=== PATIENT | female | born 1935 | race Caucasian/White ===

== ENCOUNTER 2022-06-12 10:50 | Emergency (ER) | payer MEDICARE, SELFPAY ==
[2022-06-12] VITALS (23 sets, daily range): BP systolic 166–204; BP diastolic 66–88; PULSE 68–81; RESP 16–24; TEMP 36.2; O2SAT 92–97; BMI 27.3
--- NOTE | 2022-06-12 12:04 | CRLHL7_ITS ---
For Patients: As a result of the Century Cures Act, medical imaging exams and procedure reports are released immediately into your electronic medical record. You may view this report before your referring provider. If you have questions, please contact your health care provider. INDICATION: Altered mental status COMPARISON: March 05, 2022 TECHNIQUE: Single-view study FINDINGS: TUBES AND LINES: None. HEART AND MEDIASTINUM: Mildly enlarged heart similar in appearance to the prior study. LUNGS AND PLEURAL SPACES: Abnormal interstitial, vascular and alveolar findings with prominent septal lines.This likely represents interstitial and alveolar edema/congestive heart failure. A diffuse inflammatory process is possible but less likely. OSSEOUS STRUCTURES: Age-appropriate appearance. No acute focal finding. IMPRESSION: Pattern most consistent with interstitial and alveolar edema/congestive heart failure. Diffuse inflammatory process is possible but less likely. Dictated by Andrew Crum MD @ 06/12/2022 12:57:12 PM (Electronically Signed)
--- NOTE | 2022-06-12 12:04 | CRLHL7_ITS ---
For Patients: As a result of the Century Cures Act, medical imaging exams and procedure reports are released immediately into your electronic medical record. You may view this report before your referring provider. If you have questions, please contact your health care provider. INDICATION: Altered mental status. TECHNIQUE: CT head without contrast. COMPARISON: 06/09/2021. FINDINGS: CSF spaces: Within normal limits for age. Brain parenchyma and extra-axial spaces: The ramírez-white differentiation is normal. No sign of mass, hemorrhage, or midline shift. No extra-axial fluid collection. Skull base and calvarium: The visualized paranasal sinuses and mastoid air cells demonstrate no acute or significant findings. The visualized orbits are grossly unremarkable. No skull fractures. IMPRESSION: Unremarkable noncontrast head CT. No change from the prior exam. Please note that all CT scans at this facility use dose modulation, iterative reconstruction, and/or weight-based dosing when appropriate to reduce radiation dose to as low as reasonably achievable. Dictated by Karan Reddy MD @ 06/12/2022 12:38:54 PM (Electronically Signed)
--- NOTE | 2022-06-12 12:04 | CT_ITS ---
Final Report Patient: CHEIKH RAINEY Facility:?[facility] Patient ID:?[id number] Site Patient ID:?[id number]. Site :?[id number] Study:?CT Head Angio 95CC ISOVUE 370-06/12/2022 12:47:30 PM Ordering Physician:?Castro Marie Final Report: CT ANGIOGRAM HEAD DATE: 06/12/2022 CLINICAL HISTORY: Patient with altered mental status. TECHNIQUE: Standard helical CT image acquisition through the intracranial circulation following intravenous administration of contrast material with bolus tracking. Multiplanar reconstructed images were performed and interpreted. COMPARISON: CT same day. FINDINGS: There is no cerebral aneurysm or large vessel occlusion. The right internal carotid artery demonstrates mild intracranial atherosclerosis. The right middle cerebral artery and its branches are normal. The right anterior cerebral artery and its branches are normal. The left internal carotid artery demonstrates mild intracranial atherosclerosis. The left middle cerebral artery and its branches are normal. The left anterior cerebral artery and its branches are normal. The anterior communicating artery is well visualized and appears normal. The right vertebral artery and PICA are normal. The left vertebral artery and PICA are normal. The vertebral arteries are codominant. The basilar artery is patent and appears normal. The right posterior cerebral artery is normal. The left posterior cerebral artery is normal. The visualized venous structures are patent. There is a 13mm calcified extra-axial lesion overlying the right frontal lobe, likely a meningioma. No significant mass effect on the underlying brain parenchyma. IMPRESSION: 1. Normal CT angiogram of the head without intracranial aneurysm or other neurovascular abnormality. 2. 13mm calcified extra-axial lesion overlying the right frontal lobe is likely a meningioma. No significant mass effect on the underlying brain parenchyma. Please note that all CT scans at this facility use dose modulation, iterative reconstruction, and/or weight-based dosing when appropriate to reduce radiation dose to as low as reasonably achievable. Dictated by: Cedric Valdivia MD @ 06/12/2022 13:10:00 (Electronic Signature)
--- NOTE | 2022-06-12 12:04 | ED.NEUROSD ---
HPI - Neuro Symptoms/Deficit General Time Seen by Provider: 11:45 Date Seen: 06/12/22 Chief Complaint: Neuro Symptoms/Altered Deficit Stated Complaint: Weakness, shakiness, confusion Time Seen by Provider: 06/12/22 12:03 Source: RN notes reviewed Mode of arrival: EMS History of Present Illness HPI Narrative: Farhana is a very pleasant 86-year-old female with a history of renal failure currently on dialysis as well as history of Parkinson's disease and diabetes who comes to the emergency room for evaluation regarding confusion. Patient's daughter notes that her mom called her at 0635 this morning. She really had no complaints but this was unusual for her. Patient states that she woke up at 0500 hours to have a bowel movement and notes that it seemed to be harder to walk been normal. She does not really remember anything from last night, denies any falls but again does not remember. Patient's daughter went to pick her up this morning for dialysis and felt that Farhana was noted to be more shaky on her left side and needed to hold a cup of water with both hands in order not to spill it. She states that her mom was using a walker in the house which is unusual for her. Daughter states that she does have residual right-sided weakness from a stroke 1 year ago as well as continued numbness of her right cheek and right arm. Today she has left-sided symptoms per the daughter. Her daughter states that she also seems to be more confused. I do interview Farhana had she states that she feels more confused. She denies any chest pain or shortness of breath. In regards to coughing she states she ?coughs all the time?. She does not make urine per her report. Upon further discussion rarely does she have a just a drop of urine. She has been doing dialysis for 7 years. Last known normal was yesterday afternoon when Farhana spent the day with her son. Patient denies any recent fever but she has had chills. She denies any aches pains or headache. Patient lives independently and her daughter is a very devoted and loving caregiver. Patient did have some liquids this morning and had no difficulty with swallowing and did not experience any choking. Onset (ago): hour(s) Location: left arm and left leg Related Data Home Medications Medication Instructions Recorded Confirmed atorvastatin 40 mg tablet 40 mg PO DAILY 06/12/22 06/12/22 brimonidine 0.2 % eye drops drp OPHTHALMIC (EYE) 06/12/22 carbidopa 25 mg-levodopa 100 mg tab PO 06/12/22 tablet carvedilol 12.5 mg tablet 12.5 mg PO Q12H 06/12/22 06/12/22 clopidogrel 75 mg tablet 75 mg PO DAILY 06/12/22 06/12/22 dorzolamide 22.3 mg-timolol 6.8 1 drp OPHTHALMIC (EYE) Q12H 06/12/22 06/12/22 mg/mL eye drops esomeprazole magnesium 40 mg 40 mg PO Q24H 06/12/22 06/12/22 capsule,delayed release insulin glargine 100 unit/mL (3 17 unit SUBCUT DAILY 06/12/22 06/12/22 mL) subcutaneous pen (Lantus Solostar U-100 Insulin) irbesartan 300 mg tablet 300 mg PO DAILY 06/12/22 06/12/22 isosorbide mononitrate 30 mg 30 mg PO DAILY 06/12/22 06/12/22 tablet,extended release 24 hr latanoprost 0.005 % eye drops 1 drp OPHTHALMIC (EYE) DAILY 06/12/22 06/12/22 nitroglycerin 0.4 mg sublingual 0.4 mg SUBLINGUAL Q5M PRN 06/12/22 06/12/22 tablet vitamin B complex and vitamin C 1 cap PO DAILY 06/12/22 06/12/22 no.20-folic acid 1 mg capsule (Triphrocaps) Allergies Allergy/AdvReac Type Severity Reaction Status Date / Time Penicillins Allergy Mild Unknown Verified 06/12/22 11:57 Review of Systems Status of ROS: Reports: 10 or more systems reviewed and unremarkable except as noted in History and below Const: Reports: chills; Denies: fever Eyes: Denies: change in vision ENMT: Denies: throat pain, neck pain or difficulty swallowing Cardio: Denies: chest pain, swelling of feet/ankles or shortness of breath with exertion Resp: Reports: cough (Chronic); Denies: shortness of breath GI: Denies: abdominal pain, nausea, vomiting or difficulty swallowing : Reports: other (As noted in HPI) Musculo: Denies: back pain, neck pain, extremity pain or extremity swelling Integ/Breast: Denies: rash Neuro: Reports: numbness in extremities (Chronic on the right. New in left hand.) and weakness in extremities (Chronic in right arm and right leg, new in left arm and left leg.); Denies: headache Psych: Denies: anxiety PFSH PFSH Social History Smoking Status: Unknown if ever smoked Do you use any of these nicotine containing products: None Second hand tobacco smoke exposure: No How often do you have a drink containing alcohol: never AUDIT-C Alcohol total score: 0 Non-prescribed substance use: denies use Exam Const: Vital Signs, click to edit/add: Vital Signs - 24 hr 06/12/22 11:45 06/12/22 12:35 06/12/22 12:40 Temperature 97.2 F L Pulse Rate [Left P ulse Oximeter] 68 75 76 Respiratory Rate 20 16 16 Blood Pressure [Le ft Upper Arm] 202/74 H 197/71 H 192/74 H Pulse Oximetry 97 96 96 06/12/22 13:00 06/12/22 13:20 06/12/22 13:40 Temperature Pulse Rate [Left P ulse Oximeter] 78 80 77 Respiratory Rate 16 16 16 Blood Pressure [Le ft Upper Arm] 191/72 H 191/73 H 187/88 H Pulse Oximetry 95 96 96 06/12/22 14:00 06/12/22 14:20 06/12/22 14:40 Temperature Pulse Rate [Left P ulse Oximeter] 81 81 81 Respiratory Rate 16 16 16 Blood Pressure [Le ft Upper Arm] 186/79 H 204/81 H 198/79 H Pulse Oximetry 96 96 96 06/12/22 15:00 06/12/22 15:20 06/12/22 15:40 Temperature Pulse Rate [Left P ulse Oximeter] 80 81 80 Respiratory Rate 16 16 16 Blood Pressure [Le ft Upper Arm] 200/81 H 201/88 H 201/81 H Pulse Oximetry 96 93 92 06/12/22 16:00 06/12/22 16:20 06/12/22 16:40 Temperature Pulse Rate [Left P ulse Oximeter] 79 71 75 Respiratory Rate 16 16 16 Blood Pressure [Le ft Upper Arm] 198/78 H 176/69 H 180/66 H Pulse Oximetry 96 96 96 06/12/22 17:00 06/12/22 17:20 06/12/22 17:40 Temperature Pulse Rate [Left P ulse Oximeter] 75 78 76 Respiratory Rate 16 16 16 Blood Pressure [Le ft Upper Arm] 166/85 H 181/73 H 182/72 H Pulse Oximetry 95 96 93 06/12/22 18:00 06/12/22 18:20 06/12/22 18:40 Temperature Pulse Rate [Left P ulse Oximeter] 74 74 70 Respiratory Rate 16 22 24 Blood Pressure [Le ft Upper Arm] 185/71 H 185/72 H 184/66 H Pulse Oximetry 94 94 93 06/12/22 19:00 06/12/22 19:20 Temperature Pulse Rate [Left P ulse Oximeter] 74 71 Respiratory Rate 18 24 Blood Pressure [Le ft Upper Arm] 195/72 H 188/70 H Pulse Oximetry 92 93 Documenting provider has reviewed patient's vital signs: yes Common normals: no apparent distress, oriented x3, no limitations and alert General appearance: cooperative, comfortable and well kempt Orientation/consciousness: Yes awake, Yes oriented to person, Yes oriented to place and Yes oriented to time Other: Patient does not so much have confusion but rather inability to answer some questions. She states I do not know. HENMT: Common normals: normocephalic, head/scalp atraumatic, external ears normal, TM's normal bilaterally and external nose normal Head and scalp: normocephalic and atraumatic Face and sinus: flattened naso-labial fold (Very subtle on the left. However full motor intact with smiling.) left Nose: external nose normal External ear: external ears normal Tympanic membrane: TM's normal bilaterally Eye: Other: EOM is full. Patient has no vision in her right eye. There is some slight lateral deviation at rest. Left pupil is reactive. Patient does have macular degeneration. Peripheral vision intact. Neck & C-Spine: Common normals: full ROM, no lymphadenopathy and supple Resp: Common normals: normal respiratory effort and clear to auscultation bilaterally Effort & inspection: able to speak in complete sentences Auscultation: clear to auscultation bilaterally Cardio: Common normals: regular rate and regular rhythm Rate: regular rate Rhythm: regular rhythm Heart sounds: murmur (4/6 systolic murmur crescendo decrescendo.) GI: Common normals: Normal to inspection, nondistended, normoactive bowel sounds present, soft to palpation and non-tender Palpation: soft : Common normals: no CVA tenderness Bladder/kidney exam: no CVA tenderness Back & Pelvis: Common normals: no CVA tenderness Extremity: Common normals: normal to inspection and no pedal edema (Wearing Levi hose) Other: Able to lift right leg off bed 4/5. Left leg strength 3 to 4/5. Able to hold in the air for 5 seconds. Neuro: [place] Coma Scale: document GCS findings Luisana coma scale eye opening: Spontaneous (4) [place] coma scale verbal response: Orientated (5) [place] coma scale motor response: Obey commands (6) [place] coma scale total score: 15 Common normals: oriented x3 Sensorium/orientation: awake, alert, oriented to person, oriented to place and oriented to time Cranial nerves: CN XI (spinal accessory) Speech: speech normal Gait (neuro): unable to assess gait Other: 4/5 strength lower extremity lifting from bed. Five strength and great toe and ankles. Upper extremity strength intact 5/5. However patient has tremulous type of hand movements. Bill is negative. Decreased sensation right cheek chronic. Raises eyebrows smiles tongue is midline speech is normal. Psych: Common normals: mental status grossly normal, thought process normal, cooperative and speech normal Appearance: well kempt Attitude: calm Activity/motor behavior: appropriate eye contact Speech: normal speech Thought process: normal thought process Thought content: normal thought content Attention/concentration: attention grossly intact Memory/cognition: memory grossly intact Insight: fair Judgement: judgment good Skin: Common normals: no rashes or lesions noted General skin exam: no rashes or lesions noted Course Course Hospital Course: Unfortunately we do not have a last well-known time. Patient will be sent to CT for CT and CTA. Labs will include a CBC, comprehensive panel, urinalysis if she has any urine although this is highly unlikely. Would also check troponin, EKG. Differential diagnosis includes but is not limited to stroke, sepsis, infection, COVID, acute coronary event. Reevaluation(s) Reevaluation #1: I do have the opportunity to speak to patient's daughter. At this time I fear that Farhana may have had of stroke with mild left-sided weakness but paired with the residual affects of her right-sided stroke previously, I fear she may need senior living placement. Will await the laboratory values as well as results of CTA. CT by my read appears to be without evidence of acute stroke or bleed. Also of concern is very harsh cardiac murmur. Reevaluation #2: I have spoken with [place] [facility] daughters. At this time I have concerns regarding a new stroke with left-sided weakness. I also have concerns regarding a particularly harsh cardiac murmur that I cannot see has been documented previously. Patient's blood pressure decreased to 186 systolic but is now over 200 once again. Will give her low dose of Lopressor 1.25 mg to bring his systolic blood pressure down to 180. Also will give patient her Plavix 75 mg that she has not taken this morning. Did take her aspirin last evening. We have been accepted by [facility] for transfer. Vital Signs Vital signs: Initial Vital Signs Temperature 97.2 F L 06/12/22 11:45 Temperature Source Temporal Artery Scan 06/12/22 11:45 Pulse Rate 68 06/12/22 11:45 Pulse Rhythm 06/12/22 11:45 Respiratory Rate 20 06/12/22 11:45 Blood Pressure 202/74 H 06/12/22 11:45 Blood Pressure Mean 116 06/12/22 11:45 Blood Pressure Position Sitting 06/12/22 11:45 Pulse Oximetry 97 06/12/22 11:45 Oxygen Delivery Method 06/12/22 11:45 Vital Signs Temperature 97.2 F L 06/12/22 11:45 Pulse Rate 68 06/12/22 11:45 Respiratory Rate 20 06/12/22 11:45 Blood Pressure 202/74 H 06/12/22 11:45 Pulse Oximetry 97 06/12/22 11:45 Temperature 97.2 F L 06/12/22 11:45 Pulse Rate 71 06/12/22 19:20 Respiratory Rate 24 06/12/22 19:20 Blood Pressure 188/70 H 06/12/22 19:20 Pulse Oximetry 93 06/12/22 19:20 MDM - Neuro Symptoms/Deficit MDM Narrative Medical decision making narrative: 1. CVA-and has a reassuring head CT. Patient currently on a chronic aspirin and Plavix. CTA did not show any acute findings. Patient has continued to be stable here in the emergency room. She does have a blood pressure that was initially elevated at 202 systolic but decreased to 186 systolic. Unfortunately this has risen again and patient will be given Lopressor 1.25 mg IV. She is also given her morning dose of Plavix which she had not taken. She did take aspirin last evening. At this time given her weakness on the left in associated with the residual weakness on the right from an old stroke I do have concerns about her living alone. She may need senior living rehabilitation for a few weeks. Not have any difficulty swallowing at this time. 2. Systolic murmur-this is very harsh murmur. She states that she has had a murmur in the past. I do not note in previous notes here at the [facility] that it was 4 to 5/6. Patient does agree that recently she has been getting more tired with activity. Questionable aortic stenosis. Recommend echocardiogram and/or cardiac consultation. 3. Pulmonary edema-patient did not do dialysis this morning. Last dialysis was 72 hours ago on SundayJune 09. She has no chest pain at this time. 4. Disposition-patient has been accepted by [facility] for transfer. Currently awaiting a call for bed availability. Accepting doctor . Addendum: Patient received Lopressor 1 0.25 g IV and systolic blood pressure is now 166. Patient is allowed to eat and drink. Medical Records Attestation: I reviewed the patient's medical records. Lab Data Attestation: I reviewed the patient's lab results. Labs: Lab Results 06/12/22 06/12/22 06/12/22 Range/Units 12:15 12:15 12:30 WBC 6.62 (4.50-11.00) K/uL RBC 3.05 L (4.00-5.20) m/uL Hgb 9.8 L (12.0-16.0) gm/dL Hct 30.9 L (33.0-51.0) % MCV 101 H (80-100) fL MCH 32 (26-34) pg MCHC 32 (32-36) gm/dL RDW Coeff of Will 13.0 (11.5-15.5) % Plt Count 145 (140-440) K/uL Neut % (Auto) 70.6 (42.0-72.0) % Lymph % (Auto) 20.4 (20-44) % [place] % (Auto) 5.7 (0.0-11.0) % Eos % (Auto) 2.6 (0.0-7.0) % Baso % (Auto) 0.5 (0.0-3.0) % Neut # (Auto) 4.68 (1.7-7.0) K/uL Lymph # (Auto) 1.35 (0.90-2.90) K/uL [place] # (Auto) 0.40 (0.00-0.90) K/UL Eos # (Auto) 0.17 (0.00-0.50) K/uL Baso # (Auto) 0.03 (0.00-0.30) K/uL Abs Immat Gran (auto) 0.01 (0.00-0.30) K/uL Sodium 136 (135-149) mmol/L Potassium 4.8 (3.6-5.1) mmol/L Chloride 100 (96-114) mmol/L Carbon Dioxide 26 (20-32) mmol/L BUN 52 H (7-30) mg/dL Creatinine 8.2 H (0.5-1.5) mg/dL Estimated Creat Clear 4.85 Estimated GFR 4 ml/min Glucose 176 H (60-115) mg/dL Calcium 10.6 (8.4-10.6) mg/dL Total Bilirubin 0.6 (0.1-1.5) mg/dL AST 24 (12-35) U/L ALT < 4 L (4-35) U/L Alkaline Phosphatase 100 (40-150) U/L Troponin I < 0.01 L (0.01-0.04) ng/mL Total Protein 7.1 (6.0-8.3) g/dL Albumin 4.0 (3.3-5.0) g/dL SARS-CoV-2 (PCR) Negative SARS-CoV-2 (Negative) Influenza Type A (PCR) Negative PCR FLU A (Negative) Influenza Type B (PCR) Negative PCR FLU B (Negative) Imaging Data CT scan - head: Attestation: I have reviewed the pertinent imaging results. My impression: No evidence of stroke Radiologist's impression: No acute findings Head angio CT: Attestation: I have reviewed the pertinent imaging results. Radiologist's impression: 13 mm a calcified extra-axial lesion overlying the frontal lobe is likely a meningioma. Otherwise normal CT angiogram of the head without intracranial aneurysm or other neurovascular abnormality. Neck angio CT: Attestation: I have reviewed the pertinent imaging results. Radiologist's impression: Mild/less than 50% stenosis of the right internal carotid artery and left internal carotid artery., mild bilateral vertebral artery origin stenosis ease Chest x-ray: Attestation: I have reviewed the pertinent imaging results. My impression: Increased vascular markings. Radiologist's impression: Interstitial and alveolar edema/congestive heart failure. ECG Data Attestation: I personally reviewed and interpreted this ECG as follows: ECG interpretation date: 06/12/22 Interpretation: Patient has an EKG that shows sinus rhythm at a rate of 78. Right bundle branch block is present. Left anterior fascicular block is present. Compared to EKG from February of 2022 this is largely unchanged. Discharge Plan Discharge Clinical Impression: Weakness, Cerebrovascular accident, Hypertension, Acute renal failure, Cardiac murmur Patient Disposition: [facility] Condition: Improved Prescriptions: No Action atorvastatin 40 mg tablet 40 mg PO DAILY 0RF Label Comments: TAKE ONE TABLET BY MOUTH ONE TIME DAILY AT BEDTIME brimonidine 0.2 % drops OPHTHALMIC (EYE) 0RF Label Comments: INSTILL ONE DROP INTO LEFT EYE THREE TIMES A DAY carbidopa-levodopa 25-100 mg tablet PO 0RF Label Comments: Take 2 tablets by mouth in the morning then take 1 tablet in afternoon and then 2-3 tablets at bedtime carvedilol 12.5 mg tablet 12.5 mg PO Q12H 0RF Label Comments: TAKE ONE TABLET BY MOUTH TWICE DAILY clopidogrel 75 mg tablet 75 mg PO DAILY 0RF Label Comments: TAKE ONE TABLET BY MOUTH ONE TIME DAILY esomeprazole magnesium 40 mg capsule,delayed release(DR/EC) 40 mg PO Q24H 0RF Label Comments: TAKE ONE CAPSULE BY MOUTH ONE TIME DAILY insulin glargine [Lantus Solostar U-100 Insulin] 100 unit/mL (3 mL) insulin pen 17 unit SUBCUT DAILY 0RF Label Comments: inject 22 units by subcutaneous route once daily in the morning irbesartan 300 mg tablet 300 mg PO DAILY 0RF Label Comments: take 0.5 tablets by mouth once daily at bedtime. isosorbide mononitrate 30 mg tablet extended release 24 hr 30 mg PO DAILY 0RF Label Comments: TAKE THREE TABLETS BY MOUTH DAILY latanoprost 0.005 % drops 1 drp OPHTHALMIC (EYE) DAILY 0RF Label Comments: INSTILL ONE DROP INTO LEFT EYE AT BEDTIME Triphrocaps 1 mg capsule 1 cap PO DAILY 0RF Label Comments: TAKE ONE CAPSULE BY MOUTH ONE TIME DAILY nitroglycerin 0.4 mg tablet, sublingual 0.4 mg sublingual Q5M PRN0RF Label Comments: PLACE 1 TABLET UNDER THE TONGUE EVERY 5 MINUTES NEEDED FOR CHEST PAIN UP TO 3 DOSES. CALL 911 IF PAIN PERSISTS. dorzolamide-timolol 22.3-6.8 mg/mL drops 1 drp OPHTHALMIC (EYE) Q12H 0RF Label Comments: INSTILL ONE DROP INTO LEFT EYE TWICE DAILY
--- NOTE | 2022-06-12 12:06 | ED.NURSE ---
Pt to ct at this time.
[2022-06-12 12:51] LABS: Basophils Absolute Auto 0.03 K/uL (0.00-0.30); Basophils Percent Auto 0.5 % (0.0-3.0); Eosinophils Absolute Auto 0.17 K/uL (0.00-0.50); Eosinophils Percent Auto 2.6 % (0.0-7.0); Hematocrit 30.9 % (33.0-51.0); Hemoglobin* 9.8 gm/dL (12.0-16.0); Immature Granulocytes Abs Auto 0.01 K/uL (0.00-0.30); Lymphocytes Absolute Auto 1.35 K/uL (0.90-2.90); Lymphocytes Percent Auto 20.4 % (20-44); Mean Corpuscular HGB Conc 32 gm/dL (32-36); Mean Corpuscular Hemoglobin 32 pg (26-34); Mean Corpuscular Volume 101 fL (80-100); Monocytes Percent Auto 5.7 % (0.0-11.0); Neutrophils Absolute Auto 4.68 K/uL (1.7-7.0); Neutrophils Percent Auto 70.6 % (42.0-72.0); Platelet Count* 145 K/uL (140-440); Red Blood Count 3.05 m/uL (4.00-5.20); Slide Review Reflex No; White Blood Count* 6.62 K/uL (4.50-11.00)
[2022-06-12 12:57] LABS: Chloride* 100 mmol/L (96-114); Potassium* 4.8 mmol/L (3.6-5.1); Sodium* 136 mmol/L (135-149)
[2022-06-12 12:59] LABS: Creatinine* 8.2 mg/dL (0.5-1.5); Est. Creatinine Clearance* 4.85; Estimated Glomerular Filt Rate 4 ml/min
[2022-06-12 13:00] LABS: Alkaline Phosphatase* 100 U/L (40-150); Aspartate Amino Transferase* 24 U/L (12-35); Bilirubin Total* 0.6 mg/dL (0.1-1.5); Blood Urea Nitrogen* 52 mg/dL (7-30); Carbon Dioxide* 26 mmol/L (20-32); Glucose* 176 mg/dL (60-115); Total Protein* 7.1 g/dL (6.0-8.3)
[2022-06-12 13:01] LABS: Calcium* 10.6 mg/dL (8.4-10.6)
[2022-06-12 13:02] LABS: Alanine Aminotransferase* < 4 U/L (4-35)
[2022-06-12 13:15] LABS: Troponin I* < 0.01 ng/mL (0.01-0.04)
[2022-06-12 13:35] LABS: PCR FLU A Negative PCR FLU A (Negative); PCR FLU B Negative PCR FLU B (Negative)
[2022-06-12 13:37] LABS: SARS PCR* Negative SARS-CoV-2 (Negative)
[2022-06-12] MEDS: CLOPIDOGREL 75 MG TABLET PO (15:42)
[2022-06-12] MEDS: METOPROLOL TARTRATE 1 MG/ML inj 1.25 MG IVP (15:42)
--- NOTE | 2022-06-12 16:39 | ED.NURSE ---
6707--patient wanted the blood sugar done and checked was 146. given patient a turkey sandwich to eat. has not eaten anything yet today. daughters are at the bedside.
--- NOTE | 2022-06-12 17:07 | ED.NURSE ---
up to the bathroom via wc and feeling weak and shaky. patient had a medium BM. tolerated the activity well with SBA.
--- NOTE | 2022-06-12 17:15 | ED.NURSE ---
[facility] staff called to say go ahead with transfer and to call when the patient is on the way at [phone]. this will be nurse/nurse report. planning to admit to room DOM 2D 329 bed. Called dispatch for transfer going to [facility] and expected transfer about 1930 tonight.
--- NOTE | 2022-06-12 20:21 | ED.NURSE ---
given report to Medardo Joseph at [facility] charge on DOM 2 D 329 bed.
== END 2022-06-12 19:40 | disposition home or self-care (01) ==
PROVIDERS: Emergency Provider Family Medicine; PCP Internal Medicine Nephrology
DX: R53.1 Weakness (principal); I63.9 Cerebral infarction, unspecified; R01.1 Cardiac murmur, unspecified; I10 Essential (primary) hypertension
CPT/HCPCS: 36415; 70450; 70496; 70498; 71045; 80053; 81003; 84484; 85025; 87040; 87502; 87635; 93005; 99285; A9270; Q9967

== ENCOUNTER 2022-06-12 19:36 | Outpatient (CLI) | payer MEDICARE, SELFPAY | END 2022-06-12 19:37 | disposition home or self-care (01) | LOC: AMB 07-04 08:53 | PROVIDERS: PCP Internal Medicine Nephrology; Visit Provider Family Medicine | DX: R53.1 Weakness (principal); I10 Essential (primary) hypertension; N17.9 Acute kidney failure, unspecified; R01.1 Cardiac murmur, unspecified; Z86.73 Personal history of transient ischemic attack (TIA), and cerebral infarction without residual deficits | CPT/HCPCS: A0425; A0429 ==

== ENCOUNTER 2022-08-02 14:19 | Outpatient (RCR) | payer SELFPAY | END 2023-07-09 16:33 | disposition home or self-care (01) | LOC: MOW 14:19 | PROVIDERS: PCP Internal Medicine Nephrology; Visit Provider Internal Medicine Nephrology | DX: Z76.0 Encounter for issue of repeat prescription (principal) | CPT/HCPCS: S5170 ==

== ENCOUNTER 2022-08-15 14:00 | Outpatient (RCR) | payer MEDICARE, SELFPAY ==
--- NOTE | 2022-06-20 14:57 | PT.OPEX ---
PT Silver Outpatient Eval PT [facility] Outpatient Eval Start: 06/20/22 14:18 Freq: Status: Active Protocol: Document 06/20/22 14:19 JOAN (Rec: 06/20/22 14:47 JOAN [id number]) E-signed By Mariana Alcala DPT Physical Therapy Outpatient Evaluation Insurance Information Recert Due Date 08/21/22 Insurance Name Medicare B,[employer] [facility] Medical Diagnosis Gait instability weakness bilateral LEs Treating Diagnosis General weakness core/hips/ glut/LEs, unsteady gait, limited tolerance for extended standing/walking/activity Referring MD Dr Velazquez Subjective Subjective Patient comes to PT with her daughter, Cheryl. Patient/ daughter provided hx and information. Patient was noticing increased weakness, difficulty walking, and having shakiness/tremors last week. She gets dialysis 3x/week on Sunday, Sun, and Sunday. She was seen in ED June 12 and transferred to [facility]. Patient d/c home last . Referred to PT by MD for strengthening, balance, and gait. Patient/dtr report that she had metabolic encephalopathy and the dialysis treatments last week and Sun at [facility] helped to resolve this and sx have been decreasing. She is using a FWW for amb. Her daughter have been alternating staying with her to help at home as needed. Patient reports some ongoing leg weakness and she is hoping to return to using a 4ww, which she has used in the past. FWW was issued to her at hospital d/c last week and she is getting around well with that at home. She does not have to do stairs. Typically lives alone in a townhouse. She does not drive - daughters assist as needed (Yvette and Cheryl). Current Work Status Retired Precautions Treatment Precautions/Contraindications DM, heart condition, HTN, cancer, OA, stroke with some R sided weakness UE>LE, end stage renal failure with dialysis 3x/week Assessment Assessment/Impression Patient is an 86 year old female general weakness core/ hips/glut/LEs, unsteady gait, limited tolerance for extended standing/walking/activity. Patient denies pain. She is s /p recent hospitalization last week, being transferred down to [facility] and d/c home last . Daughters have been alternating staying with her each day/night to assist as needed. Patient lives alone and is needing more assistance these last few weeks. Patient reports LEs are feeling weak and walking was difficult but this is improving after her treatment at [facility]. Patient with general weakness core/hips/glut/LEs. She is using a FWW for ambulation. Patient requesting PT assess FWW height and provide some training as she didn't get much training when it was issued to her. FWW height is appropriate. Safety and gait training with FWW provided. Patient able to amb in the hallways demonstrating safe gait and use of FWW for ambulation and with approach to chair this session. Initiated HEP with seated LE exercises. Tolerated well and patient reports doing some of these currently. Patient would benefit from skilled PT for general strengthening with focus on core/hip/gluts/LEs, gait training, balance/ proprioception training, and establishment of HEP. Plan of Care Rehabilitation Potential Good Physical Therapy Goals 1. Improve core/hip/glut strength and trunk stability over the next 6-8 weeks for improved functional mobility, improved balance, and improved gait with decreased risk of falls. 2. Patient will be assessed with Tinetti and/or Bill balance assessments to assist with recommendation of appropriate AD for improved safety with ambulation and decreased risk of falls. 3. Improve balance, coordination, proprioception over the next 6-8 weeks for improved gait and safety and for decreased risk of falls with indoor/outdoor ambulation . 4. Patient will not have any falls over the next 6-8 weeks with progression of PT activities and daily/home activities. 5. Patient will be I with HEP within 8 weeks for progression toward above goals , ongoing self improvements with strength/coordination/balance/ gait/safety, and for amb with less restrictive AD for improved safety with indoor/ outdoor activities. Coordination/Communication With Referral Source Treatment Plan/Direct Interventions Gait Training,Therapeutic Exercises Frequency/Duration 1x/week Patient Will Be Discharged From Therapy Completion of LTG(s),Skills Plateau,Independent w/HEP, Independently Progressing Evaluation Billing Untimed Code Treatment Minutes 24 Complexity Moderate Certification Information Initial Certification Date 06/20/22 Ending Certification Date 08/21/22
== END 2022-10-13 23:59 | disposition home or self-care (01) ==
PROVIDERS: PCP Internal Medicine Nephrology; Visit Provider Internal Medicine Nephrology
DX: R26.9 Unspecified abnormalities of gait and mobility (principal); Z51.89 Encounter for other specified aftercare
CPT/HCPCS: 97110; 97116; 97162; 97165; 97535; X5282

== ENCOUNTER 2022-10-05 13:42 | Outpatient (CLI) | payer MEDICARE, SELFPAY | END 2022-10-05 13:43 | disposition home or self-care (01) | LOC: AMB 10-30 20:27 | PROVIDERS: PCP Internal Medicine Nephrology; Visit Provider Family Medicine | DX: R53.1 Weakness (principal) | CPT/HCPCS: A0425; A0429 ==

== ENCOUNTER 2022-10-05 14:12 | Observation (INO) | payer MEDICARE, SELFPAY ==
[2022-10-05] VITALS (25 sets, daily range): BP systolic 188–221; BP diastolic 74–112; PULSE 69–143; RESP 16; TEMP 36.3–36.8; O2SAT 94–100; BMI 27.3; BMI 25.3
--- NOTE | 2022-10-05 14:30 | CRLHL7_ITS ---
For Patients: As a result of the Century Cures Act, medical imaging exams and procedure reports are released immediately into your electronic medical record. You may view this report before your referring provider. If you have questions, please contact your health care provider. INDICATION: Shortness of breath. TECHNIQUE: Chest 2 views. COMPARISON: None. FINDINGS: Lungs: Diffuse interstitial prominence suggestive of mild pulmonary edema. Pleura: No pleural effusion or pneumothorax. Heart and Mediastinum: The heart is enlarged. The aorta is calcified. The vessels are unremarkable. Bones: Unremarkable. IMPRESSION: Cardiomegaly along with probable pulmonary edema suggests congestive heart failure. Dictated by Connor Quinteros MD @ 10/05/2022 4:19:10 PM (Electronically Signed)
[2022-10-05] MEDS: HYDROmorphone 0.5 mg/0.5 ml inj 0.2 MG IVP (14:42)
[2022-10-05] MEDS: ONDANSETRON 2 MG/ML inj 4 MG IVP ×3 (14:42→23:35)
[2022-10-05] MEDS: METOPROLOL TARTRATE 1 MG/ML inj 2.5 MG IVP (14:42)
--- NOTE | 2022-10-05 15:00 | ED_ITS ---
HPI - General Adult General Chief complaint: Weakness Stated complaint: Weakness Time Seen by Provider: 10/05/22 14:19 Source: patient, family and EMS Mode of arrival: EMS Limitations: no limitations History of Present Illness HPI narrative: 86-year-old female brought in today because of weakness. Patient was in dialysis and felt very weak, dialysis was cut short by an hour patient was sent here for evaluation. She tells me she has been feeling weak for about a month. In the last several days it has gotten worse. She denies any chest pain or shortness of breath. No abdominal discomfort. She states that her appetite is not great but unchanged. She denies any fevers or chills. She states that every now and then she has a cough. She says that she has difficulty sleeping but this is not unusual for her. She does have back pain on and off and is present today. Pain is located in the left lower back area does not radiate. Nothing makes it better or worse. She denies any dysuria, increased frequency or urgency. She states any focal neurologic deficits, no headaches, blurry vision or changes in her hearing. No slurred speech. She does state that she had a cortisone injection of the left shoulder yesterday, shoulder still bothers her so she does not feel like it worked. She denies other acute joint pains. Patient does have renal failure, is on dialysis. She has chronic hypertension h er blood pressures are usually quite elevated. She also has hyperlipidemia, Parkinson's disease, diabetes. Related Data Home Medications Medication Instructions Recorded Confirmed atorvastatin 40 mg tablet 40 mg PO DAILY 06/12/22 06/12/22 brimonidine 0.2 % eye drops drp ophthalmic (eye) 06/12/22 carbidopa 25 mg-levodopa 100 mg tab PO 06/12/22 tablet carvedilol 12.5 mg tablet 12.5 mg PO Q12H 06/12/22 06/12/22 clopidogrel 75 mg tablet 75 mg PO DAILY 06/12/22 06/12/22 dorzolamide 22.3 mg-timolol 6.8 1 drp ophthalmic (eye) Q12H 06/12/22 06/12/22 mg/mL eye drops esomeprazole magnesium 40 mg 40 mg PO Q24H 06/12/22 06/12/22 capsule,delayed release insulin glargine 100 unit/mL (3 17 unit subcut DAILY 06/12/22 06/12/22 mL) subcutaneous pen (Lantus Solostar U-100 Insulin) irbesartan 300 mg tablet 300 mg PO DAILY 06/12/22 06/12/22 isosorbide mononitrate 30 mg 30 mg PO DAILY 06/12/22 06/12/22 tablet,extended release 24 hr latanoprost 0.005 % eye drops 1 drp ophthalmic (eye) DAILY 06/12/22 06/12/22 nitroglycerin 0.4 mg sublingual 0.4 mg sublingual Q5M PRN 06/12/22 06/12/22 tablet vitamin B complex and vitamin C 1 cap PO DAILY 06/12/22 06/12/22 no.20-folic acid 1 mg capsule (Triphrocaps) Allergies Allergy/AdvReac Type Severity Reaction Status Date / Time Penicillins Allergy Mild Unknown Verified 10/05/22 14:31 Review of Systems Status of ROS: Reports: 10 or more systems reviewed and unremarkable except as noted in History and below [facility] Social History Smoking Status: Unknown if ever smoked Do you use any of these nicotine containing products: None Second hand tobacco smoke exposure: No How often do you have a drink containing alcohol: never AUDIT-C Alcohol total score: 0 Non-prescribed substance use: denies use service: No Exam Narrative: Exam Narrative: Elderly patient in no acute distress. Alert and oriented x3. Answers questions appropriately. Mood and affect are appropriate. Thoughts are goal oriented and rational. No tangential or magical thinking noted. Patient speaks in full sentences without needing to catch her breath. HEENT: Normocephalic atraumatic. Pupils are equally round reactive to light. Extraocular muscles are intact. Conjunctivae are moist without any icterus noted. Patient has had surgery on the upper right eyelid. Moist mucous membranes. Posterior pharynx is normal. Neck is soft without any lymphadenopathy or thyromegaly. Cardiovascular: Heart is regular rate and rhythm S1 and S2 are present with a harsh 5/6 holosystolic murmur. Lungs: Clear to auscultation bilaterally no wheezes rhonchi or rales are appreciated. Patient takes deep breaths without any discomfort. Abdomen: Soft and nontender nondistended with normal bowel sounds. No guarding or rebound. Extremities: Bilateral lower extremities are without edema. Skin: Well perfused without any obvious rashes. Const: Vital Signs, click to edit/add: Vital Signs - 24 hr 10/05/22 14:26 10/05/22 14:52 Temperature 97.4 F L Pulse Rate [Pulse Oximeter] 80 Respiratory Rate 16 Blood Pressure [Le ft Upper Arm] 221/91 H Pulse Oximetry 97 98 Oxygen Delivery Me thod Room Air Course Course Hospital Course: IV was established labs were drawn. Patient care will be transferred to oncoming physician. Vital Signs Vital signs: Initial Vital Signs Temperature 97.4 F L 10/05/22 14:26 Temperature Source Temporal Artery Scan 10/05/22 14:26 Pulse Rate 80 10/05/22 14:26 Pulse Rhythm 10/05/22 14:26 Pulse Strength 3+ Normal 10/05/22 14:26 Respiratory Rate 16 10/05/22 14:26 Blood Pressure 221/91 H 10/05/22 14:26 Blood Pressure Mean 134 10/05/22 14:26 Blood Pressure Position Supine 10/05/22 14:26 Pulse Oximetry 97 10/05/22 14:26 Oxygen Delivery Method 10/05/22 14:26 Vital Signs Temperature 97.4 F L 10/05/22 14:26 Pulse Rate 80 10/05/22 14:26 Respiratory Rate 16 10/05/22 14:26 Blood Pressure 221/91 H 10/05/22 14:26 Pulse Oximetry 97 10/05/22 14:26 Oxygen Delivery Method 10/05/22 14:26 Temperature 97.4 F L 10/05/22 14:26 Pulse Rate 80 10/05/22 14:26 Respiratory Rate 16 10/05/22 14:26 Blood Pressure 221/91 H 10/05/22 14:26 Pulse Oximetry 98 10/05/22 14:52 Oxygen Delivery Method 10/05/22 14:26 Medical Decision Making Lab Data Labs: Lab Results 10/05/22 Range/Units 15:29 Lactate 1.3 (0.5-1.9) mmol/L Discharge Plan Discharge Prescriptions: No Action atorvastatin 40 mg tablet 40 mg PO DAILY Label Comments: TAKE ONE TABLET BY MOUTH ONE TIME DAILY AT BEDTIME brimonidine 0.2 % drops OPHTHALMIC (EYE) Label Comments: INSTILL ONE DROP INTO LEFT EYE THREE TIMES A DAY carbidopa-levodopa 25-100 mg tablet PO Label Comments: Take 2 tablets by mouth in the morning then take 1 tablet in afternoon and then 2-3 tablets at bedtime carvedilol 12.5 mg tablet 12.5 mg PO Q12H Label Comments: TAKE ONE TABLET BY MOUTH TWICE DAILY clopidogrel 75 mg tablet 75 mg PO DAILY Label Comments: TAKE ONE TABLET BY MOUTH ONE TIME DAILY esomeprazole magnesium 40 mg capsule,delayed release(DR/EC) 40 mg PO Q24H Label Comments: TAKE ONE CAPSULE BY MOUTH ONE TIME DAILY insulin glargine [Lantus Solostar U-100 Insulin] 100 unit/mL (3 mL) insulin pen 17 unit SUBCUT DAILY Label Comments: inject 22 units by subcutaneous route once daily in the morning irbesartan 300 mg tablet 300 mg PO DAILY Label Comments: take 0.5 tablets by mouth once daily at bedtime. isosorbide mononitrate 30 mg tablet extended release 24 hr 30 mg PO DAILY Label Comments: TAKE THREE TABLETS BY MOUTH DAILY latanoprost 0.005 % drops 1 drp OPHTHALMIC (EYE) DAILY Label Comments: INSTILL ONE DROP INTO LEFT EYE AT BEDTIME Triphrocaps 1 mg capsule 1 cap PO DAILY Label Comments: TAKE ONE CAPSULE BY MOUTH ONE TIME DAILY nitroglycerin 0.4 mg tablet, sublingual 0.4 mg sublingual Q5M PRN Label Comments: PLACE 1 TABLET UNDER THE TONGUE EVERY 5 MINUTES NEEDED FOR CHEST PAIN UP TO 3 DOSES. CALL 911 IF PAIN PERSISTS. dorzolamide-timolol 22.3-6.8 mg/mL drops 1 drp OPHTHALMIC (EYE) Q12H Label Comments: INSTILL ONE DROP INTO LEFT EYE TWICE DAILY Follow Up/Referrals: Jack Velazquez JR, DO [Primary Care Provider] -
[2022-10-05 15:34] LABS: Lactate* 1.3 mmol/L (0.5-1.9)
[2022-10-05 15:49] LABS: Basophils Absolute Auto 0.01 K/uL (0.00-0.30); Basophils Percent Auto 0.1 % (0.0-3.0); Hematocrit 35.5 % (33.0-51.0); Hemoglobin* 11.5 gm/dL (12.0-16.0); Immature Granulocytes Abs Auto 0.02 K/uL (0.00-0.30); Immature Granulocytes Pct Auto 0.3 %; Lymphocytes Percent Auto 9.5 % (20-44); Mean Corpuscular HGB Conc 32 gm/dL (32-36); Mean Corpuscular Hemoglobin 33 pg (26-34); Mean Corpuscular Volume 100 fL (80-100); Monocytes Percent Auto 6.4 % (0.0-11.0); Neutrophils Percent Auto 83.7 % (42.0-72.0); Platelet Count* 119 K/uL (140-440); RDW Coefficient of Variation % 13.2 % (11.5-15.5); Red Blood Count 3.54 m/uL (4.00-5.20); White Blood Count* 7.18 K/uL (4.50-11.00)
[2022-10-05 15:58] LABS: Slide Review Reflex No
[2022-10-05 16:11] LABS: Albumin* 4.5 g/dL (3.3-5.0); Chloride* 95 mmol/L (96-114)
[2022-10-05 16:12] LABS: Sodium* 131 mmol/L (135-149)
[2022-10-05 16:14] LABS: Alkaline Phosphatase* 96 U/L (40-150); Aspartate Amino Transferase* 21 U/L (12-35); Bilirubin Direct* 0.6 mg/dL (0.0-0.5); Bilirubin Total* 0.8 mg/dL (0.1-1.5); Carbon Dioxide* 24 mmol/L (20-32); Creatinine* 5.3 mg/dL (0.5-1.5); Estimated Glomerular Filt Rate 7 ml/min; Total Protein* 7.2 g/dL (6.0-8.3)
[2022-10-05 16:15] LABS: PCR FLU A Negative PCR FLU A (Negative); PCR FLU B Negative PCR FLU B (Negative)
[2022-10-05 16:15] LABS: Alanine Aminotransferase* 8 U/L (4-35); Blood Urea Nitrogen* 36 mg/dL (7-30); Calcium* 9.7 mg/dL (8.4-10.6); Glucose* 261 mg/dL (60-115)
[2022-10-05 16:18] LABS: C Reactive Protein* < 0.5 mg/dL (0.5-1.0)
[2022-10-05 16:21] LABS: SARS PCR* Negative SARS-CoV-2 (Negative)
[2022-10-05 16:59] LABS: Erythrocyte SedimentationRate* 12 mm/hr (2-20)
--- NOTE | 2022-10-05 18:05 | ED.NURSE ---
Trop POC was missed, order changed to add on and is running now.
[2022-10-05 18:20] LABS: Troponin I* 0.01 ng/mL (0.01-0.04)
[2022-10-05] MEDS: CARBIDOPA-LEVODOPA 25-100 TABLET 1 TAB PO (20:30)
--- NOTE | 2022-10-05 21:14 | ED.NURSE ---
While MD in with patient she had episode of emesis. Sats where noted to drop and patient turned pale. O2 was applied. When RN got to patient trial to resume room air resulted in sats dropping to mid 80's. Oxygen via NC at 4L. Med/physicians and surgeons updated.
--- NOTE | 2022-10-05 21:25 | P.IMHP_ITS ---
Hospitalist- H&P: HPI History of Present Illness Date Seen: 10/06/22 Chief complaint: Weakness Narrative: Farhana Neal is a 86 year old female with multiple medical comorbidities who presented to the ER today for weakness. Two of her daughters are in the room with me during H&P, and assist in providing history. Patient lives independently and has had increasing weakness over the past 2 weeks; during this time, her daughters have been staying with her to assist with ADLs. Over the past few weeks, she has had pain in her left shoulder, received steroid injection (9mg Betamethason) 2 days ago. She was also started on tizanidine on 09/25 for pain. In the past 2 days, her weakness has significantly worsened and she was unable to complete her dialysis run this morning secondary to weakness. She denies chest pain, dyspnea, abdominal pain. Last BM was this morning (x2, then she actually took an Imodium as she was worried about having a bowel movement while at dialysis). ER course and findings: - troponin 0.01 - intermittent emesis, accompanied by mild nausea. After 1 episode of emesis, had new onset hypoxia with oxygen saturations into the low 70%s. Responded well to supplemental oxygen - evidence of fluid overload on chest x-ray, no evidence of acute infectious process - elevated BP, received metoprolol IV x1 Upon arrival to the floor, patient had 1 more moderate volume emesis, accompanied by mild nausea. Portable abdominal x-ray revealed no acute findi ngs, add on lipase was normal. Patient denies headache or focal neurologic deficits, has no other concerns for me. Patient has a complicated medical history: Coronary artery disease status post PCI (last angiogram + stent was LAD 02/2022). Most recent TTE below End-stage renal disease on dialysis Insulin-dependent DM2 (last A1c 7.5) Cerebrovascular disease, status post CVA. CVA symptoms included right-sided weakness and numbness. Final Impressions (TTE 04/2022 at [facility]) 1. Transthoracic outreach echo interpretation. 2. Moderate calcific aortic valve stenosis, systolic mean Doppler gradient?20 mmHg, valve area by Doppler 1.07 cm2 . Trivial regurgitation. 3. Mildly enlarged right ventricular chamber size, normal systolic?function, estimated right ventricular systolic pressure 62 mmHg (right?atrial pressure of 10 mmHg). 4. Normal left ventricular chamber size, no regional wall motion?abnormalities, calculated 2-D linear ejection fraction 67%. 5. Mitral valve stenosis (inflow obstruction), area by continuity equation?1.8 cm2, diastolic mean Doppler gradient 7 mmHg. 6. No pericardial effusion. 7. Compared to the report of 06/30/2021 the following changes have?occurred: slightly increased aortic valve gradient/severity; the right?ventricular systolic pressure has increased further. Side by side?comparison of images performed. 8. See SERIAL STUDIES for comparison of measurements and hemodynamics. Findings Status post coronary artery stent implantation (06-MAR-2022).? Farhana is retired and , lives independently in [place]. Has 4 adult children that live locally. She is a nonsmoker. Daughter Cheryl would be medical decision maker if needed, patient requests full code status. Review of Systems Status of ROS: Reports: 10 or more systems reviewed and unremarkable except as noted in History and below Narrative: Patient has noted elevated blood sugars since her steroid injection 2 days ago, blood sugars been as high as 360. PFSH PFSH Medical History (Updated 10/06/22 @ 00:13 by Cecelia Gaming MD) Anemia of chronic disease ASCVD (arteriosclerotic cardiovascular disease) Breast cancer Coronary artery disease CVA (cerebral vascular accident) ESRD (end stage renal disease) on dialysis Insulin dependent type 2 diabetes mellitus NSTEMI (non-ST elevated myocardial infarction) Thrombocytopenia Tremor Surgical History (Updated 10/05/22 @ 22:46 by Cecelia Gaming MD) H/O mastectomy Hx of eye surgery Stented coronary artery Social History Smoking Status: Never smoker Do you use any of these nicotine containing products: None Second hand tobacco smoke exposure: No How often do you have a drink containing alcohol: never AUDIT-C Alcohol total score: 0 Non-prescribed substance use: denies use service: No Meds Home Medications and Allergies Home Medications Medication Instructions Recorded Confirmed Type atorvastatin 40 mg tablet 40 mg PO DAILY 06/12/22 10/05/22 History brimonidine 0.2 % eye drops 1 drp ophthalmic (eye) Q8H 06/12/22 10/05/22 History carbidopa 25 mg-levodopa 100 mg 2 tab PO TID 06/12/22 10/05/22 History tablet carvedilol 12.5 mg tablet 12.5 mg PO Q12H 06/12/22 10/05/22 History clopidogrel 75 mg tablet 75 mg PO DAILY 06/12/22 10/06/22 History dorzolamide 22.3 mg-timolol 6.8 1 drp ophthalmic (eye) Q12H 06/12/22 10/06/22 History mg/mL eye drops esomeprazole magnesium 40 mg 40 mg PO Q24H 06/12/22 10/05/22 History capsule,delayed release insulin glargine 100 unit/mL (3 16 unit subcut BID 06/12/22 10/05/22 History mL) subcutaneous pen (Lantus Solostar U-100 Insulin) irbesartan 300 mg tablet 300 mg PO DAILY 06/12/22 10/05/22 History isosorbide mononitrate 30 mg 30 mg PO DAILY 06/12/22 10/05/22 History tablet,extended release 24 hr latanoprost 0.005 % eye drops 1 drp ophthalmic (eye) DAILY 06/12/22 10/05/22 History nitroglycerin 0.4 mg sublingual 0.4 mg sublingual Q5M PRN 06/12/22 10/05/22 History tablet vitamin B complex and vitamin C 1 cap PO DAILY 06/12/22 10/05/22 History no.20-folic acid 1 mg capsule (Triphrocaps) pantoprazole 40 mg tablet,delayed 40 mg PO DAILY 10/05/22 10/05/22 History release Home Medication Comments: Also on Plavix 75mg QD Allergies Allergy/AdvReac Type Severity Reaction Status Date / Time Penicillins Allergy Mild Unknown Verified 10/05/22 14:31 Exam Narrative: Exam Narrative: GEN: Alert and oriented, appears nontoxic but chronically ill HEENT: Normal external ears, L EOMI intact, L eye covered with patch (wears at night given history of eye surgery at subsequent inability to close right eye at night) CV: RRR, holosystolic murmur heard in left midclavicular line, blowing murmur heard best in left mid axillary line R: Air movement adequate with mild decrease, fine crackles bilateral bases Ext: wwp, no concerning edema, wearing Levi hose Skin: No concerning skin lesions or rashes on exposed skin Neuro: Patient has intermittent movements of extremities consistent with myoclonic jerks (baseline per daughters), no fine tremor. Gait not observed Psych: Appropriate Const: Vital Signs, click to edit/add: Vital Signs - 24 hr 10/05/22 14:26 10/05/22 14:52 10/05/22 16:31 Temperature 97.4 F L Pulse Rate Pulse Rate [Pulse Oximeter] 80 69 Respiratory Rate 16 16 Blood Pressure Blood Pressure [Le ft Upper Arm] 221/91 H 201/81 H Pulse Oximetry 97 98 94 Oxygen Delivery Me thod Room Air Room Air 10/05/22 16:32 10/05/22 16:53 10/05/22 17:13 Temperature Pulse Rate Pulse Rate [Pulse Oximeter] Respiratory Rate Blood Pressure 201/81 H 216/83 H 200/90 H Blood Pressure [Le ft Upper Arm] Pulse Oximetry Oxygen Delivery Me thod 10/05/22 17:32 10/05/22 17:52 10/05/22 18:13 Temperature Pulse Rate Pulse Rate [Pulse Oximeter] Respiratory Rate Blood Pressure 203/87 H 214/90 H 188/82 H Blood Pressure [Le ft Upper Arm] Pulse Oximetry Oxygen Delivery Me thod 10/05/22 18:32 10/05/22 18:52 10/05/22 19:13 Temperature Pulse Rate Pulse Rate [Pulse Oximeter] Respiratory Rate Blood Pressure 196/112 H 203/86 H 207/85 H Blood Pressure [Le ft Upper Arm] Pulse Oximetry Oxygen Delivery Me thod 10/05/22 19:33 10/05/22 19:51 10/05/22 19:58 Temperature Pulse Rate 71 Pulse Rate [Pulse Oximeter] Respiratory Rate Blood Pressure 221/87 H 199/85 H Blood Pressure [Le ft Upper Arm] Pulse Oximetry 96 Oxygen Delivery Me thod 10/05/22 20:00 10/05/22 20:12 10/05/22 20:15 Temperature Pulse Rate 71 72 70 Pulse Rate [Pulse Oximeter] Respiratory Rate Blood Pressure 205/74 H Blood Pressure [Le ft Upper Arm] Pulse Oximetry 97 96 96 Oxygen Delivery Me thod 10/05/22 20:30 10/05/22 20:33 10/05/22 20:45 Temperature Pulse Rate 72 72 70 Pulse Rate [Pulse Oximeter] Respiratory Rate Blood Pressure 217/95 H Blood Pressure [Le ft Upper Arm] Pulse Oximetry 95 94 100 Oxygen Delivery Me thod 10/05/22 20:52 10/05/22 21:00 Temperature Pulse Rate 143 H 70 Pulse Rate [Pulse Oximeter] Respiratory Rate Blood Pressure 199/105 H Blood Pressure [Le ft Upper Arm] Pulse Oximetry 100 Oxygen Delivery [facility] Hospitalist - H&P: Result Labs Labs: Short CBC 10/05/22 Range/Units 15:29 WBC 7.18 (4.50-11.00) K/uL Hgb 11.5 L (12.0-16.0) gm/dL Hct 35.5 (33.0-51.0) % Plt Count 119 L (140-440) K/uL BMP 10/05/22 15:29 Sodium 131 L Potassium 5.0 Chloride 95 L Carbon Dioxide 24 BUN 36 H Creatinine 5.3 H Glucose 261 H Calcium 9.7 Cardiac Enzymes 10/05/22 Range/Units 15:29 Troponin I 0.01 (0.01-0.04) ng/mL Liver Function 10/05/22 Range/Units 15:29 Total Bilirubin 0.8 (0.1-1.5) mg/dL Direct Bilirubin 0.6 H (0.0-0.5) mg/dL AST 21 (12-35) U/L ALT 8 (4-35) U/L Alkaline Phosphatase 96 (40-150) U/L Albumin 4.5 (3.3-5.0) g/dL Assessment and Plan Assessment and plan (1) ESRD (end stage renal disease) on dialysis: Status: Acute Assessment and Plan: - reviewed case with Dr. [place], on-call powersaw supervisor at [facility], she is aware of patient and assisted with plan below - while patient does not typically make urine, will give IV Lasix x1 given her fluid overload and shorter HD run today - scheduled for HD tomorrow and the team at [facility] is aware of this; we will call back first thing tomorrow morning to attempt transfer to higher level of care (2) Hypoxia: Status: Acute Assessment and Plan: - likely secondary to fluid overload, no evidence of acute pulmonary infection - follow troponins given history of coronary artery disease - supplemental oxygen, increase to BiPAP if needed - trial of Lasix x1 as noted above (3) Vomiting: Status: Acute Assessment and Plan: - differential diagnosis includes viral illness, ileus versus SBO, intracranial process, uremia. - baseline neuro status with reassuring head CT, labs and AXR also baseline - treat nausea, monitor fluid status closely, ADAT (4) Weakness: Status: Acute Assessment and Plan: - progressive with multiple comorbidities; OT and PT have been ordered. May need to consider assisted living upon d/c (5) ASCVD (arteriosclerotic cardiovascular disease): Status: Acute (6) Thrombocytopenia: Problem comment: chronic, stable Status: Acute (7) Insulin dependent type 2 diabetes mellitus: Problem comment: Last outpatient A1C 7.5 Status: Acute Assessment and Plan: - accuchecks, SSI. Sugars have been higher post-shoulder injection on 10/03 Plan - per above - daughters updated at bedside about plan of care, questions answered
--- NOTE | 2022-10-05 22:28 | CRLHL7_ITS ---
For Patients: As a result of the Cures Act, medical imaging exams and procedure reports are released immediately into your electronic medical record. You may view this report before your referring provider. If you have questions, please contact your health care provider. INDICATION: Vomiting TECHNIQUE: Abdomen/Pelvis radiograph 2 views COMPARISON: None FINDINGS: The sensitivity and specificity of the exam are moderately limited by the patient`s body habitus. Bowel: The bowel gas pattern is normal without evidence of bowel obstruction. Soft tissue: No evidence of pneumoperitoneum present. No suspicious calcifications noted. Bone: Mild levoscoliosis is noted with associated facet arthritis and degenerative disc disease. IMPRESSION: 1. Unremarkable appearance of the visualized abdomen. Dictated by Levon Henderson MD @ 10/05/2022 11:03:02 PM Dictated by: Levon Henderson MD @ 10/05/2022 23:03:08 (Electronically Signed)
[2022-10-05 22:37] LABS: Lipase* 258 U/L (23-300)
[2022-10-05 23:23] LABS: Troponin I* 0.03 ng/mL (0.01-0.04)
[2022-10-05] MEDS: carvediloL 6.25 MG TABLET 12.5 MG PO (23:39)
--- NOTE | 2022-10-06 00:13 | CRLHL7_ITS ---
For Patients: As a result of the Century Cures Act, medical imaging exams and procedure reports are released immediately into your electronic medical record. You may view this report before your referring provider. If you have questions, please contact your health care provider. INDICATION: Vomiting, history of stroke TECHNIQUE: CT Head without i.v. contrast. Coronal and sagittal reformats were obtained. COMPARISON: 06/12/2022 FINDINGS: CSF space: Unremarkable for age. Brain: No evidence of mass, acute infarction or hemorrhage is seen. No mass-effect or midline shift is seen. Moderate cortical atrophy in the frontal lobes noted without interval change. A stable ossified structure seen extending from the right frontal bone. Calvarium: The visualized paranasal sinuses are well aerated. The mastoid air cells are clear. The patient is status post bilateral cataract removal. A glaucoma devices seen in the right orbit. The calvarium is unremarkable in appearance with no fractures identified. IMPRESSION: 1. No evidence of acute infarction, intracranial hemorrhage, or mass-effect seen. Dictated by Levon Henderson MD @ 10/06/2022 1:07:21 AM Please note that all CT scans at this facility use dose modulation, iterative reconstruction, and/or weight-based dosing when appropriate to reduce radiation dose to as low as reasonably achievable. Dictated by: Levon Henderson MD @ 10/06/2022 01:07:25 (Electronically Signed)
[2022-10-06] MEDS: FUROSEMIDE 10 MG/ML inj 80 MG IVP (01:01)
[2022-10-06] MEDS: LORazepam 0.5 MG TABLET PO (01:13)
[2022-10-06] MEDS: HYDRALAZINE HCL 20 MG/ML inj 10 MG IVP (01:14)
--- NOTE | 2022-10-06 01:46 | CRLHL7_ITS ---
For Patients: As a result of the Century Cures Act, medical imaging exams and procedure reports are released immediately into your electronic medical record. You may view this report before your referring provider. If you have questions, please contact your health care provider. INDICATION: Abdominal pain, vomiting TECHNIQUE: CT Abdomen and pelvis without i.v. contrast. Coronal and sagittal reformats were obtained. COMPARISON: 10/17/2020 FINDINGS: Lower chest: Bilateral pleural effusions, septal thickening and ground-glass opacities are present in the lung bases likely due to pulmonary edema. Liver: There is a large cystic lesion in the right upper quadrant measuring 11 x 9 cm and significantly increased in size from prior exam. It causes severe intrahepatic biliary ductal dilatation. Spleen: Unremarkable. Pancreas: Unremarkable. Gallbladder: Unremarkable. Kidney: Moderate cortical atrophy is present within the kidneys bilaterally. Adrenal: Unremarkable. Bowel: Severe sigmoid diverticulosis is seen. The appendix is normal in appearance and size. Vascular: Moderate diffuse atherosclerotic calcifications of the abdominal aorta and its tributaries are present. Lymph: Unremarkable. Peritoneum: Unremarkable. No pneumoperitoneum is seen. No significant ascites is noted. Pelvis: Unremarkable. Soft tissue: Eventration of the midline abdominal wall is present with diastases of the rectus abdominus muscles. Mild subcutaneous edema is present. Bone: Unremarkable for age. IMPRESSION: 1. There is a large cystic lesion in the right upper quadrant measuring 11 x 9 cm and significantly increased in size from prior exam. It causes severe intrahepatic biliary ductal dilatation. Dictated by Levon Henderson MD @ 10/06/2022 3:08:16 AM Please note that all CT scans at this facility use dose modulation, iterative reconstruction, and/or weight-based dosing when appropriate to reduce radiation dose to as low as reasonably achievable. Dictated by: Levon Henderson MD @ 10/06/2022 03:08:18 (Electronically Signed)
[2022-10-06] MEDS: MORPHINE 4 MG/ML INJ IVP (01:52)
[2022-10-06] MEDS: PANTOPRAZOLE SODIUM 40 MG INJ IVP (02:48)
[2022-10-06 03:00] VITALS: BP 180/64; PULSE 75; RESP 16; TEMP 36.8; O2SAT 99
--- NOTE | 2022-10-06 03:59 | PM.IMPN1 ---
Subjective Date Seen: 10/06/22 Interval history: Dony Marlow Cross Cover Note eHospitalist follow-up given signout from Dr. Gaming. CT scan of abdomen and pelvis reveals a large cystic lesion in the right upper quadrant measuring 11 x 9 cm and significantly increased in size from prior examination, causing severe intrahepatic biliary ductal dilatation. Call made to bedside nurse who reported that the patient was resting however was aware of the CT scan results and attempting to coordinate transfer for the patient. Thank you for including Dony Marlow in the patients care. This service is available for further assistance as requested by your care team by calling [phone]. Exam Const: Vital Signs, click to edit/add: Vital Signs - 24 hr 10/05/22 14:26 10/05/22 14:52 10/05/22 16:31 Temperature 97.4 F L Pulse Rate Pulse Rate [Pulse Oximeter] 80 69 Respiratory Rate 16 16 Blood Pressure Blood Pressure [Le ft Arm] Blood Pressure [Le ft Upper Arm] 221/91 H 201/81 H Pulse Oximetry 97 98 94 Oxygen Delivery Me thod Room Air Room Air Oxygen Flow Rate 10/05/22 21:28 10/05/22 21:28 10/05/22 16:32 Temperature 98.2 F Pulse Rate Pulse Rate [Pulse Oximeter] 72 Respiratory Rate 16 16 Blood Pressure 201/81 H Blood Pressure [Le ft Arm] Blood Pressure [Le ft Upper Arm] Pulse Oximetry 99 99 Oxygen Delivery Me thod Nasal Cannula Nasal Cannula Oxygen Flow Rate 2 2 10/05/22 16:53 10/05/22 17:13 10/05/22 17:32 Temperature Pulse Rate Pulse Rate [Pulse Oximeter] Respiratory Rate Blood Pressure 216/83 H 200/90 H 203/87 H Blood Pressure [Le ft Arm] Blood Pressure [Le ft Upper Arm] Pulse Oximetry Oxygen Delivery Me thod Oxygen Flow Rate 10/05/22 17:52 10/05/22 18:13 10/05/22 18:32 Temperature Pulse Rate Pulse Rate [Pulse Oximeter] Respiratory Rate Blood Pressure 214/90 H 188/82 H 196/112 H Blood Pressure [Le ft Arm] Blood Pressure [Le ft Upper Arm] Pulse Oximetry Oxygen Delivery Me thod Oxygen Flow Rate 10/05/22 18:52 10/05/22 19:13 10/05/22 19:33 Temperature Pulse Rate Pulse Rate [Pulse Oximeter] Respiratory Rate Blood Pressure 203/86 H 207/85 H 221/87 H Blood Pressure [Le ft Arm] Blood Pressure [Le ft Upper Arm] Pulse Oximetry Oxygen Delivery Me thod Oxygen Flow Rate 10/05/22 19:51 10/05/22 19:58 10/05/22 20:00 Temperature Pulse Rate 71 71 Pulse Rate [Pulse Oximeter] Respiratory Rate Blood Pressure 199/85 H Blood Pressure [Le ft Arm] Blood Pressure [Le ft Upper Arm] Pulse Oximetry 96 97 Oxygen Delivery Me thod Oxygen Flow Rate 10/05/22 20:12 10/05/22 20:15 10/05/22 20:30 Temperature Pulse Rate 72 70 72 Pulse Rate [Pulse Oximeter] Respiratory Rate Blood Pressure 205/74 H Blood Pressure [Le ft Arm] Blood Pressure [Le ft Upper Arm] Pulse Oximetry 96 96 95 Oxygen Delivery Me thod Oxygen Flow Rate 10/05/22 20:33 10/05/22 20:45 10/05/22 20:52 Temperature Pulse Rate 72 70 143 H Pulse Rate [Pulse Oximeter] Respiratory Rate Blood Pressure 217/95 H 199/105 H Blood Pressure [Le ft Arm] Blood Pressure [Le ft Upper Arm] Pulse Oximetry 94 100 Oxygen Delivery Me thod Oxygen Flow Rate 10/05/22 21:00 10/05/22 23:00 10/05/22 23:00 Temperature Pulse Rate 70 71 Pulse Rate [Pulse Oximeter] 72 Respiratory Rate 16 Blood Pressure Blood Pressure [Le ft Arm] Blood Pressure [Le ft Upper Arm] Pulse Oximetry 100 Oxygen Delivery Me thod Oxygen Flow Rate 10/05/22 23:00 10/06/22 03:00 Temperature 98.2 F Pulse Rate Pulse Rate [Pulse Oximeter] 75 Respiratory Rate 16 Blood Pressure Blood Pressure [Le ft Arm] 180/64 H Blood Pressure [Le ft Upper Arm] Pulse Oximetry 99 99 Oxygen Delivery Me thod Nasal Cannula Nasal Cannula Oxygen Flow Rate 2 2 Labs Labs: Laboratory Results - last 24 hr 10/05/22 10/05/22 10/05/22 15:00 15:29 15:29 WBC 7.18 RBC 3.54 L Hgb 11.5 L Hct 35.5 MCV 100 MCH 33 MCHC 32 RDW Coeff of Will 13.2 Plt Count 119 L Neut % (Auto) 83.7 H Lymph % (Auto) 9.5 L [place] % (Auto) 6.4 Eos % (Auto) 0.0 Baso % (Auto) 0.1 Neut # (Auto) 6.00 Lymph # (Auto) 0.70 L [place] # (Auto) 0.50 Eos # (Auto) 0.00 Baso # (Auto) 0.01 Abs Immat Gran (auto) 0.02 Imm/Tot Granulo (auto) 0.3 ESR 12 Sodium Potassium Chloride Carbon Dioxide BUN Creatinine Estimated Creat Clear Estimated GFR Glucose Lactate Calcium Total Bilirubin Direct Bilirubin AST ALT Alkaline Phosphatase Troponin I C-Reactive Protein Total Protein Albumin Lipase SARS-CoV-2 (PCR) Negative SARS-CoV-2 Influenza Type A (PCR) Negative PCR FLU A Influenza Type B (PCR) Negative PCR FLU B 10/05/22 10/05/22 10/05/22 15:29 15:29 22:45 WBC RBC Hgb Hct MCV MCH MCHC RDW Coeff of Will Plt Count Neut % (Auto) Lymph % (Auto) [place] % (Auto) Eos % (Auto) Baso % (Auto) Neut # (Auto) Lymph # (Auto) [place] # (Auto) Eos # (Auto) Baso # (Auto) Abs Immat Gran (auto) Imm/Tot Granulo (auto) ESR Sodium 131 L Potassium 5.0 Chloride 95 L Carbon Dioxide 24 BUN 36 H Creatinine 5.3 H Estimated Creat Clear 7.50 Estimated GFR 7 Glucose 261 H Lactate 1.3 Calcium 9.7 Total Bilirubin 0.8 Direct Bilirubin 0.6 H AST 21 ALT 8 Alkaline Phosphatase 96 Troponin I 0.01 0.03 C-Reactive Protein < 0.5 L Total Protein 7.2 Albumin 4.5 Lipase 258 SARS-CoV-2 (PCR) Influenza Type A (PCR) Influenza Type B (PCR)
--- NOTE | 2022-10-06 05:31 | PC.NURSE ---
Pt arrived approx 2114, N/V throughout evening, green bile. Denied pain until approx 214, at which time abd ct ordered, see results. PRN morphine administered with relief, pt able to sleep, no emesis noted since 199. prn bp med administered x1 for bp >180, recheck bp within parameters. Pt does not produce urine, per daughters, has not urinated for more than 6 months.
[2022-10-06 07:00] VITALS: BP 126/57; PULSE 70; RESP 16; TEMP 36.8; O2SAT 94
[2022-10-06 08:02] LABS: Basophils Absolute Auto 0.01 K/uL (0.00-0.30); Basophils Percent Auto 0.1 % (0.0-3.0); Eosinophils Absolute Auto 0.01 K/uL (0.00-0.50); Eosinophils Percent Auto 0.1 % (0.0-7.0); Hematocrit 35.3 % (33.0-51.0); Hemoglobin* 11.5 gm/dL (12.0-16.0); Immature Granulocytes Abs Auto 0.03 K/uL (0.00-0.30); Immature Granulocytes Pct Auto 0.4 %; Lymphocytes Percent Auto 11.6 % (20-44); Mean Corpuscular HGB Conc 33 gm/dL (32-36); Mean Corpuscular Hemoglobin 32 pg (26-34); Mean Corpuscular Volume 98 fL (80-100); Monocytes Percent Auto 4.7 % (0.0-11.0); Neutrophils Percent Auto 83.1 % (42.0-72.0); RDW Coefficient of Variation % 13.6 % (11.5-15.5); Red Blood Count 3.62 m/uL (4.00-5.20); White Blood Count* 7.47 K/uL (4.50-11.00)
[2022-10-06 08:04] LABS: Slide Review Reflex No
[2022-10-06 08:11] LABS: Platelet Count* 89 K/uL (140-440)
[2022-10-06 08:16] LABS: Chloride* 97 mmol/L (96-114)
[2022-10-06 08:17] LABS: Albumin* 4.1 g/dL (3.3-5.0); Potassium* 5.6 mmol/L (3.6-5.1); Sodium* 133 mmol/L (135-149)
[2022-10-06 08:20] LABS: Alanine Aminotransferase* 9 U/L (4-35); Alkaline Phosphatase* 80 U/L (40-150); Aspartate Amino Transferase* 21 U/L (12-35); Bilirubin Total* 0.6 mg/dL (0.1-1.5); Blood Urea Nitrogen* 49 mg/dL (7-30); Carbon Dioxide* 24 mmol/L (20-32); Creatinine* 6.8 mg/dL (0.5-1.5); Est. Creatinine Clearance* 5.44; Estimated Glomerular Filt Rate 6 ml/min; Glucose* 194 mg/dL (60-115); Total Protein* 6.6 g/dL (6.0-8.3)
[2022-10-06 08:21] LABS: Calcium* 9.7 mg/dL (8.4-10.6)
[2022-10-06 08:37] LABS: Troponin I* 0.12 ng/mL (0.01-0.04)
--- NOTE | 2022-10-06 10:06 | REH.PT ---
Pt's troponins elevated to .12, platelets 89,000. Hold PT today.
[2022-10-06 11:00] VITALS: BP 145/60; PULSE 64; RESP 18; TEMP 37.2; O2SAT 96
[2022-10-06] MEDS: cefTRIAXone 2 GM in 0.9 % SODIUM CHLORIDE Mini-bag 100 ML IVPB (12:15)
[2022-10-06] MEDS: fentaNYL 12 mcg/hr PATCH 1 PATCH TRANSDERMA (12:32)
[2022-10-06] MEDS: VANCOMYCIN 750 MG in 0.9 % SODIUM CHLORIDE 250 ml 250 ML 257.5 MG IVPB (13:02)
--- NOTE | 2022-10-06 13:41 | REH.OT ---
OT: While meeting with pt's daughters at 0930 this am, pt in bed, tremulous at times, would open L eye intermittently, R eye patched, not able to sustain attention and dependent in repositioning with assist x2. Pt's labs returned and pt with elevated troponins of .12, low platelets, noted CT results overnight. Patient's 2 daughters clarified that pt was living alone and had been managing ADLs and mobility mod I using 4ww for ambulation. Family providing assist with weekly med set up, freezer meals and pt preparing some of own meals, received meals on wheels as well. Pt's daughters assisted with transportation with dialysis and shopping tasks. Pt also has had recent OP OT/PT in 08/10 post CVA with R hemiparesis. At current status, will hold OT and progressing activity. Addendum: Noted change to comfort cares. Will discontinue OT orders.
[2022-10-06] MEDS: CARBIDOPA-LEVODOPA 25-100 TABLET 2 TAB PO ×2 (14:15→20:43)
[2022-10-06 15:00] VITALS: RESP 18; O2SAT 95
--- NOTE | 2022-10-06 17:04 | P.IMPN_ITS ---
Progress Note: A&P Assessment and plan (1) ESRD (end stage renal disease) on dialysis: Problem details: Patient was not able to complete dialysis on 10/05. Comfort cares pursued. Status: Acute (2) Hypoxia: Problem details: Mild. Status: Acute (3) Vomiting: Problem details: Bilious. Unclear etiology. Enlarging liver cyst with biliary compression. However normal bilirubin and LFTs. Status: Acute (4) Weakness: Problem details: Multiple etiologies considered. CVA, occult infection, GI related i.e. the liver and known pancreas cysts. End-stage renal disease. Status: Acute (5) ASCVD (arteriosclerotic cardiovascular disease): Problem details: Troponin became elevated overnight. EKG does not show any ST segment elevations. Patient is not complaining of chest pain. Status: Acute (6) Thrombocytopenia: Problem details: chronic, stable Status: Acute (7) Insulin dependent type 2 diabetes mellitus: Problem details: Last outpatient A1C 7.5 Status: Acute Time Spent With Patient Total time spent: 60 minutes over 2 visits with multiple family members. The family, as well as Farhana, agree that she would like to receive comfort cares and not transfer to [place]. Subjective Date Seen: 10/06/22 Interval history: Daily Progress Note - Hospital Medicine Day #: 2 CC: bilious vomiting, liver cyst, temor, weakness, ESRD OVERNIGHT UPDATES FROM STAFF & MED, LAB, IMAGING UPDATES Patient's vomiting has essentially resolved. However she is quite somnolent. She is weaker on the left than the right. She is tremulous. Afebrile. Hypertensive. Requiring only minimal nasal cannula oxygen. Objective: Difficult to arouse, when speaking seems to be intelligible and somewhat insightful. However her moments of wakefulness are limited. Vitals: see above Lungs: Clear. Shallow breathing. Cardiac: S1S2. Abdomen: No acute findings. Palpating she does not wince or seem in pain. Neuro: Clearly her left leg is not moving as well as her right. She has trouble following directions for range of motion about her left leg. 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 Disposition/Potential discharge - Comfort cares. We can look at [facility] or home hospice depending on the next 24-48 hours. Total time is 35 minutes with greater than 50% spent in counseling and coordination of care. Exam Const: Vital Signs, click to edit/add: Vital Signs - 24 hr 10/05/22 21:28 10/05/22 21:28 10/05/22 17:13 Temperature 98.2 F Pulse Rate Pulse Rate [Pulse Oximeter] 72 Respiratory Rate 16 16 Blood Pressure 200/90 H Blood Pressure [Le ft Arm] Pulse Oximetry 99 99 Oxygen Delivery Me thod Nasal Cannula Nasal Cannula Oxygen Flow Rate 2 2 10/05/22 17:32 10/05/22 17:52 10/05/22 18:13 Temperature Pulse Rate Pulse Rate [Pulse Oximeter] Respiratory Rate Blood Pressure 203/87 H 214/90 H 188/82 H Blood Pressure [Le ft Arm] Pulse Oximetry Oxygen Delivery Me thod Oxygen Flow Rate 10/05/22 18:32 10/05/22 18:52 10/05/22 19:13 Temperature Pulse Rate Pulse Rate [Pulse Oximeter] Respiratory Rate Blood Pressure 196/112 H 203/86 H 207/85 H Blood Pressure [Le ft Arm] Pulse Oximetry Oxygen Delivery Me thod Oxygen Flow Rate 10/05/22 19:33 10/05/22 19:51 10/05/22 19:58 Temperature Pulse Rate 71 Pulse Rate [Pulse Oximeter] Respiratory Rate Blood Pressure 221/87 H 199/85 H Blood Pressure [Le ft Arm] Pulse Oximetry 96 Oxygen Delivery Me thod Oxygen Flow Rate 10/05/22 20:00 10/05/22 20:12 10/05/22 20:15 Temperature Pulse Rate 71 72 70 Pulse Rate [Pulse Oximeter] Respiratory Rate Blood Pressure 205/74 H Blood Pressure [Le ft Arm] Pulse Oximetry 97 96 96 Oxygen Delivery Me thod Oxygen Flow Rate 10/05/22 20:30 10/05/22 20:33 10/05/22 20:45 Temperature Pulse Rate 72 72 70 Pulse Rate [Pulse Oximeter] Respiratory Rate Blood Pressure 217/95 H Blood Pressure [Le ft Arm] Pulse Oximetry 95 94 100 Oxygen Delivery Me thod Oxygen Flow Rate 10/05/22 20:52 10/05/22 21:00 10/05/22 23:00 Temperature Pulse Rate 143 H 70 Pulse Rate [Pulse Oximeter] 72 Respiratory Rate 16 Blood Pressure 199/105 H Blood Pressure [Le ft Arm] Pulse Oximetry 100 Oxygen Delivery Me thod Oxygen Flow Rate 10/05/22 23:00 10/05/22 23:00 10/06/22 03:00 Temperature 98.2 F Pulse Rate 71 Pulse Rate [Pulse Oximeter] 75 Respiratory Rate 16 Blood Pressure Blood Pressure [Le ft Arm] 180/64 H Pulse Oximetry 99 99 Oxygen Delivery Me thod Nasal Cannula Nasal Cannula Oxygen Flow Rate 2 2 10/06/22 07:00 10/06/22 07:00 10/06/22 07:00 Temperature 98.2 F Pulse Rate Pulse Rate [Pulse Oximeter] 70 70 Respiratory Rate 16 16 16 Blood Pressure Blood Pressure [Le ft Arm] 126/57 L Pulse Oximetry 94 94 Oxygen Delivery Me thod Nasal Cannula Nasal Cannula Oxygen Flow Rate 2 2 10/06/22 11:00 Temperature 98.9 F Pulse Rate Pulse Rate [Pulse Oximeter] 64 Respiratory Rate 18 Blood Pressure Blood Pressure [Le ft Arm] 145/60 H Pulse Oximetry 96 Oxygen Delivery Me thod Nasal Cannula Oxygen Flow Rate 1 Labs Labs: Laboratory Results - last 24 hr 10/05/22 10/05/22 10/06/22 15:29 22:45 07:45 WBC 7.47 RBC 3.62 L Hgb 11.5 L Hct 35.3 MCV 98 MCH 32 MCHC 33 RDW Coeff of Will 13.6 Plt Count 89 L Neut % (Auto) 83.1 H Lymph % (Auto) 11.6 L [place] % (Auto) 4.7 Eos % (Auto) 0.1 Baso % (Auto) 0.1 Neut # (Auto) 6.20 Lymph # (Auto) 0.90 [place] # (Auto) 0.40 Eos # (Auto) 0.01 Baso # (Auto) 0.01 Abs Immat Gran (auto) 0.03 Imm/Tot Granulo (auto) 0.4 Sodium Potassium Chloride Carbon Dioxide BUN Creatinine Estimated Creat Clear Estimated GFR Glucose Calcium Total Bilirubin AST ALT Alkaline Phosphatase Troponin I 0.01 0.03 Total Protein Albumin Lipase 258 10/06/22 07:45 WBC RBC Hgb Hct MCV MCH MCHC RDW Coeff of Will Plt Count Neut % (Auto) Lymph % (Auto) [place] % (Auto) Eos % (Auto) Baso % (Auto) Neut # (Auto) Lymph # (Auto) [place] # (Auto) Eos # (Auto) Baso # (Auto) Abs Immat Gran (auto) Imm/Tot Granulo (auto) Sodium 133 L Potassium 5.6 H Chloride 97 Carbon Dioxide 24 BUN 49 H Creatinine 6.8 H Estimated Creat Clear 5.44 Estimated GFR 6 Glucose 194 H Calcium 9.7 Total Bilirubin 0.6 AST 21 ALT 9 Alkaline Phosphatase 80 Troponin I 0.12 H* Total Protein 6.6 Albumin 4.1 Lipase
--- NOTE | 2022-10-06 19:31 | PC.NURSE ---
Pt. slept for most of the day, family at bedside all day. Pt. repositioned Q2 hrs or as requested. Pt. tolerating some juice, water, and ice cream. No N/V/SOB. Fent. patch applied to left upper shoulder. Pt. verbalized that she feels relief from the patch
[2022-10-06 23:00] VITALS: RESP 18
--- NOTE | 2022-10-07 06:39 | PC.NURSE ---
Shift note: Pt continuous to be on comfort care. Denied any pain this shift. Non-labored respiration but has been on 2L of Oxygen throughout the night. No change in condition. Checked and reposition Q2H. Drunk 100ml of water, no urine and BM. Conscious and alert.
[2022-10-07 07:00] VITALS: RESP 14; O2SAT 98
[2022-10-07] MEDS: CARBIDOPA-LEVODOPA 25-100 TABLET 2 TAB PO ×3 (09:02→20:50)
[2022-10-07] MEDS: OMEPRAZOLE 20 MG CAPSULE DR 40 MG PO (09:03)
[2022-10-07] MEDS: SODIUM CHLORIDE 0.9 % (FLUSH) 10 ML SYRINGE 5 ML IVF ×2 (09:04→20:50)
--- NOTE | 2022-10-07 13:42 | P.IMPN_ITS ---
Progress Note: A&P Assessment and plan (1) Vomiting: Problem details: Bilious. Unclear etiology. Enlarging liver cyst with biliary compression. However normal bilirubin and LFTs. Status: Acute (2) Weakness: Problem details: Multiple etiologies considered. CVA, occult infection, GI related i.e. the liver and known pancreas cysts. End-stage renal disease. Status: Acute (3) ESRD (end stage renal disease) on dialysis: Problem details: Patient was not able to complete dialysis on 10/05. Comfort cares pursued. Status: Acute (4) Hepatic cyst: Problem details: CT scan of abd/pelvis 10/06/2022: There is a large cystic lesion in the right upper quadrant measuring 11 x 9 cm and significantly increased in size from prior exam. It causes severe intrahepatic biliary ductal dilatation. Status: Acute (5) ASCVD (arteriosclerotic cardiovascular disease): Problem details: Troponin became elevated overnight. EKG does not show any ST segment elevations. Patient is not complaining of chest pain. Status: Acute (6) Thrombocytopenia: Problem details: chronic, stable Status: Acute (7) Hypoxia: Problem details: Mild. Status: Acute (8) Insulin dependent type 2 diabetes mellitus: Problem details: Last outpatient A1C 7.5 Status: Acute Plan 1. Reviewed impression with patient and her daughter. 2. Patient and daughter reiterated patient's desire to focus on comfort measures only. She again declines any additional dialysis and declines pursued of any additional disease directed diagnostic or interventional efforts. 3. Continue with our comfort focus measures for now. 4. Patient and daughter will consider possible discharge plan from the hospital should she not be imminent in terms of the possibility of come Sunday. Daughter indicates that she is not able to take care of her mother in her home and believes that if she were to be transferred for end of life cares that it would need to be either to hospice center or a intermediate facility. 5. Will have our child welfare social worker continue to assist us should that be needed on Sunday. 6. Patient daughter satisfied. They agree to above stated plans and recommendations. Time Spent With Patient Total time spent: 40 minutes Subjective Time Seen by Provider: 09:00 Date Seen: 10/07/22 Interval history: Hospital day 3. 86-year-old woman with end-stage renal disease who ordinarily receives hemodialysis 3 days per week has opted to change the paradigm of her care to terminal comfort measures only. She presented to the hospital for evaluation of nausea and vomiting with decreased oral intake. In the course of working her up it was determined that she has a large cystic mass in her liver. Etiology of this is not yet determined. Arrangements were being made to transfer patient to another facility for tertiary services that we are unable to provide here. Patient subsequently indicated her desire to change the paradigm of care to comfort measures only. Patient now receiving end of life cares. She indicates she is not having nausea or vomiting but has no interest in eating. She indicates she is comfortable at this time and that she slept well. Exam Narrative: Exam Narrative: Appears comfortable. No acute distress. Somewhat hard of hearing. Able to verbalize her own needs and wants at this time. Tells me she is comfortable when like to continue to try to achieve this. Heart tones with regular rhythm. Lungs clear to auscultation. Abdomen with active bowel sounds, soft, nontender. Const: Vital Signs, click to edit/add: Vital Signs - 24 hr 10/06/22 15:00 10/06/22 23:00 10/06/22 23:00 Respiratory Rate 18 18 Pulse Oximetry 95 Oxygen Delivery Me thod Nasal Cannula Room Air Oxygen Flow Rate 1 10/07/22 07:00 Respiratory Rate 14 Pulse Oximetry 98 Oxygen Delivery Me thod Room Air Oxygen Flow Rate Documenting provider has reviewed patient's vital signs: yes
[2022-10-07 15:00] VITALS: O2SAT 89
--- NOTE | 2022-10-07 19:02 | PC.NURSE ---
End of Shift: Patient pleasant and cooperative. Last pulse ox check sats a 89%. Patient turned and repositioned, at times declined repositioning. Patient taking sips of sprite, does not care for water. No BM. Shallow breathing. Many visitors in and out today.
[2022-10-07 23:00] VITALS: RESP 14; O2SAT 84
--- NOTE | 2022-10-08 06:33 | PC.NURSE ---
Shift note: Alert and conscious, Turned and reposition every 2QH. Denied pain. Remained in bed throughout the shift.
[2022-10-08] MEDS: CARBIDOPA-LEVODOPA 25-100 TABLET 2 TAB PO ×2 (09:36→21:44)
[2022-10-08] MEDS: OMEPRAZOLE 20 MG CAPSULE DR 40 MG PO (09:36)
--- NOTE | 2022-10-08 16:22 | P.IMPN_ITS ---
Progress Note: A&P Assessment and plan (1) Vomiting: Problem details: Bilious. Unclear etiology. Enlarging liver cyst with biliary compression. However normal bilirubin and LFTs. Status: Acute (2) Weakness: Problem details: Multiple etiologies considered. CVA, occult infection, GI related i.e. the liver and known pancreas cysts. End-stage renal disease. Status: Acute (3) ESRD (end stage renal disease) on dialysis: Problem details: Patient was not able to complete dialysis on 10/05. Comfort cares pursued now. Status: Acute (4) Hepatic cyst: Problem details: CT scan of abd/pelvis 10/06/2022: There is a large cystic lesion in the right upper quadrant measuring 11 x 9 cm and significantly increased in size from prior exam. It causes severe intrahepatic biliary ductal dilatation. Status: Acute (5) ASCVD (arteriosclerotic cardiovascular disease): Problem details: Troponin became elevated overnight. EKG does not show any ST segment elevations. Patient is not complaining of chest pain. Status: Acute (6) Thrombocytopenia: Problem details: chronic, stable Status: Acute (7) Hypoxia: Problem details: Mild. Status: Acute (8) Insulin dependent type 2 diabetes mellitus: Problem details: Last outpatient A1C 7.5 Status: Acute Plan 1. Reviewed with patient, 2 daughters, her brother from [facility], and her brother's daughter. 2. Answered their questions to their satisfaction. 3. Consider transfer to end of life care unit versus detention facility. Will discuss with social research assistant and patient family tomorrow. 4. Continue with current comfort focus measures efforts. 5. Patient again it her rates desire to no longer pursue any other additional disease directed diagnostic or interventional efforts. This includes her stated desire not to receive any additional dialysis. Time Spent With Patient Total time spent: 40 minutes Subjective Time Seen by Provider: 11:00 Date Seen: 10/08/22 Interval history: Hospital day 3. 86-year-old woman with end-stage renal disease who ordinarily receives hemodialysis 3 days per week has opted to change the paradigm of her care to terminal comfort measures only. She presented to the hospital for evaluation of nausea and vomiting with decreased oral intake. In the course of working her up it was determined that she has a large cystic mass in her liver. Etiology of this is not yet determined. Arrangements were being made to transfer patient to another facility for tertiary services that we are unable to provide here. Patient subsequently indicated her desire to change the paradigm of care to comfort measures only. Patient now receiving end of life cares. She indicates she is not having nausea or vomiting but has no interest in eating. She indicates she is comfortable at this time and that she slept well. Denies dyspnea at rest. Denies chest heaviness, pressure, tightness, or pain. Denies syncope or near-syncope. Tolerated bed bath with assist from her nurse and indicated that she felt better afterward. Exam Narrative: Exam Narrative: No acute distress, appears comfortable. Alert and oriented to self, place, time, situation at this time. Reportedly has intermittent episodes of confusion. Articulate and cooperative. Mood and affect are congruent. Lungs are clear anteriorly. Heart tones with regular rhythm, grade 2-3/6 systolic murmur across precordium unchanged. Abdomen benign. Const: Vital Signs, click to edit/add: Vital Signs - 24 hr 10/07/22 23:00 10/08/22 07:00 Respiratory Rate 14 Pulse Oximetry 84 L Oxygen Delivery Me thod Room Air Room Air Documenting provider has reviewed patient's vital signs: yes
--- NOTE | 2022-10-09 07:55 | PC.NURSE ---
END OF SHIFT NOTE: PT ON COMFORT CARES. PT HAVING HALLUCINATIONS THAT BROTHER GENE IN ROOM AND SPEAKING WITH HIM. PT WAS NOTED BY THIS BOOKING SUPERVISOR TO BE SPEAKING IN ROOM TO NO ONE ON AND OFF THROUGHOUT THE NIGHT. PT REPOSITIONED FOR COMFORT. PT DENIES PAIN. NO BOWEL OR BLADDER MOVEMENT THIS SHIFT.
[2022-10-09] MEDS: OMEPRAZOLE 20 MG CAPSULE DR 40 MG PO (10:06)
[2022-10-09] MEDS: CARBIDOPA-LEVODOPA 25-100 TABLET 2 TAB PO ×2 (10:06→14:07)
[2022-10-09] MEDS: fentaNYL 12 mcg/hr PATCH 1 PATCH TRANSDERMA (10:06)
--- NOTE | 2022-10-09 10:49 | PC.NURSE ---
Solution Design And Analysis Manager went in to complete a bed bath and check Fentanyl patch on left shoulder. There was no patch found on left shoulder. Linens, gown, floor, etc was checked with 2 staff members and no patch was found. Notified credit card specialist. New patch was applied to right shoulder with tegaderm over patch. Intervention for transdermal patch placed in chart under interventions for future documentation. Safety form was filled out.
--- NOTE | 2022-10-09 13:32 | PC.NURSE ---
End of shift note: Patient is on comfort cares. Has denied pain and nausea all day. Has a new fentanyl patch on right shoulder. Has been turned a repositioned every 2 hours this shift. Has had 2 loose BMs. No urine seen in brief. Has not eaten. Drank some sprite with pills this morning. Bottom is a little red from loose BMs. Sensicare applied to that area. Patient is responsive. Family has been at bedside most of the day. dining services director met with family and are looking for places for patient to go on comfort cares.
--- NOTE | 2022-10-09 17:44 | PM.IMPN1 ---
Progress Note: A&P Assessment and plan (1) Vomiting: Problem details: Bilious. Unclear etiology. Enlarging liver cyst with biliary compression. However normal bilirubin and LFTs. Status: Acute Assessment and Plan: Has not been an issue now for several days. (2) Weakness: Problem details: Multiple etiologies considered. CVA, occult infection, GI related i.e. the liver and known pancreas cysts. End-stage renal disease. Status: Acute Assessment and Plan: Weaknesses increasing daily. (3) ESRD (end stage renal disease) on dialysis: Problem details: Patient was not able to complete dialysis on 10/05. Comfort cares pursued now. Status: Acute (4) Hepatic cyst: Problem details: CT scan of abd/pelvis 10/06/2022: There is a large cystic lesion in the right upper quadrant measuring 11 x 9 cm and significantly increased in size from prior exam. It causes severe intrahepatic biliary ductal dilatation. Status: Acute (5) ASCVD (arteriosclerotic cardiovascular disease): Problem details: Troponin became elevated overnight. EKG does not show any ST segment elevations. Patient is not complaining of chest pain. Status: Acute (6) Thrombocytopenia: Problem details: chronic, stable Status: Acute (7) Hypoxia: Problem details: Mild. Status: Acute (8) Insulin dependent type 2 diabetes mellitus: Problem details: Last outpatient A1C 7.5 Status: Acute Plan 1. Visit with patient, 3 daughters, and 1 son today. Answered all their questions. 2. Await safe discharge disposition plan. Working with social media coordinator and family. 3. Continue with supportive efforts. Time Spent With Patient Total time spent: 30 minutes Subjective Time Seen by Provider: 12:00 Date Seen: 10/09/22 Interval history: Hospital day 4. 86-year-old woman with end-stage renal disease who ordinarily receives hemodialysis 3 days per week has opted to change the paradigm of her care to terminal comfort measures only. She presented to the hospital for evaluation of nausea and vomiting with decreased oral intake. In the course of working her up it was determined that she has a large cystic mass in her liver. Etiology of this is not yet determined. Arrangements were being made to transfer patient to another facility for tertiary services that we are unable to provide here. Patient subsequently indicated her desire to change the paradigm of care to comfort measures only. Patient now receiving end of life cares. She indicates she is not having nausea or vomiting but has no interest in eating. She indicates she is comfortable at this time and that she slept well. Denies dyspnea at rest. Denies chest heaviness, pressure, tightness, or pain. Denies syncope or near-syncope. Tolerated bed bath with assist from her nurse and indicated that she felt better afterward. Family and nursing staff note patient is more sleepy. Having intermittent episodes of confusion and visual hallucinations. Exam Narrative: Exam Narrative: Appears comfortable and in no acute distress. Articulate and cooperative. Expresses gratitude. Alert and oriented to self and place not so much to time. Reiterates desire to be kept comfortable and does not want to escalate care at all. Lungs are clear but with decreased chest wall excursion. No obvious wheezing, rhonchi, or rales. Heart tones with regular rhythm, normal S1-S2. Abdomen benign. Const: Vital Signs, click to edit/add: Vital Signs - 24 hr 10/08/22 23:00 10/09/22 09:00 10/09/22 15:35 Oxygen Delivery Me thod Room Air Room Air Room Air Documenting provider has reviewed patient's vital signs: yes
--- NOTE | 2022-10-09 18:24 | PC.NURSE ---
End of shift note: Patient resting comfortably all day. Was turned and repositioned every 2 hours during the day. Had 3 loose BMs today. Denies pain and nausea. Wakes up when repositioning and when family talks to her otherwise she is sleeping. Will [facility] tomorrow by [facility] emergent EMS.
[2022-10-09 23:00] VITALS: RESP 14
[2022-10-10] MEDS: MORPHINE 10 MG/0.5 ML ORAL SOLN PO (05:30)
--- NOTE | 2022-10-10 05:53 | PC.NURSE ---
Shift note: Turned and repositioned pt throughout the night, pt is incontinent of stool and bladder. She denies pain, became restless, PRN meds administered for comfort.
--- NOTE | 2022-10-10 08:06 | PC.SOCIAL ---
Discharge planning: Late Entry: On 10/09/22, met with family in pt's room regarding discharge plan. Family is requesting placement in a hospice facility or senior living with comfort cares. Family is only interested in facilities in [place] with [facility] being their first choice. Called [facility] and they do not have a bed available until next week. Called and faxed information to [facility] and [facility]. [facility] is full. Received call back from [facility] stating they are not able to admit pt. Received call from [facility] stating they can accept pt for admit on 10/10/22. They are willing to make a double room into a single room for this pt. Met with family who is aware and agrees with this plan. Family is aware of private pay fee for the faciity and are willing to pay the required amount. Discussed option of hospice care. Family is refusing hospice care at this time and want pt to go to the facility on comfort care. Pt meets criteria for ambulance transfer. Plan is for pt to be discharged to [facility] by Ambulance between 10-noon. Family is aware and agrees with this plan. meat process worker to follow up as needed.
[2022-10-10] MEDS: CARBIDOPA-LEVODOPA 25-100 TABLET 2 TAB PO (09:24)
--- NOTE | 2022-10-10 09:38 | PC.SOCIAL ---
Discharge planning: PAS completed for pt., #[id number].
--- NOTE | 2022-10-10 09:50 | PC.NURSE ---
Patient was discharged to [address] [place] [address]. Report was given to DARIO Aguilar. Daughter was present at time of discharge. Fentanyl patch was on right shoulder when she left for facility. Denied pain and nausea. No IV in place. Was awake and talking at time of discharge. All discharge info was faxed to [facility]. Left via Non emergent EMS. All belongings sent with her.
--- NOTE | 2022-10-11 14:08 | P.DS_ITS ---
DS: Providers Provider Time Seen by Provider: 08:00 Date Seen: 10/11/22 Date of admission: 10/05/22 20:34 Primary care physician: Jack Velazquez Jr, DO Admitting Clinician: Cecelia Gaming MD Consults: 10/05/22 22:00 Consult to Senior Private Client Advisor [CONS] Routine Comment: Reason for Consult:: Discharge Planning Needs Attending Physician on discharge: Terry Tierney MD Date of Discharge: 10/11/22 DS: Diagnosis Discharge Diagnosis (1) Vomiting: Status: Acute Problem details: Bilious. Unclear etiology. Enlarging liver cyst with biliary compression. However normal bilirubin and LFTs. (2) Hepatic cyst: Status: Acute Problem details: CT scan of abd/pelvis 10/06/2022: There is a large cystic lesion in the right upper quadrant measuring 11 x 9 cm and significantly increased in size from prior exam. It causes severe intrahepatic biliary ductal dilatation. (3) ESRD (end stage renal disease) on dialysis: Status: Acute Problem details: Patient was not able to complete dialysis on 10/05. Comfort cares pursued now. (4) Hypoxia: Status: Acute Problem details: Mild. (5) ASCVD (arteriosclerotic cardiovascular disease): Status: Acute Problem details: Troponin became elevated overnight. EKG does not show any ST segment elevations. Patient is not complaining of chest pain. (6) Thrombocytopenia: Status: Acute Problem details: chronic, stable (7) Insulin dependent type 2 diabetes mellitus: Status: Acute Problem details: Last outpatient A1C 7.5 (8) Weakness: Status: Acute Problem details: Multiple etiologies considered. CVA, occult infection, GI related i.e. the [facility] er and known pancreas cysts. End-stage renal disease. (9) Comfort measures only status: Status: Acute (10) End of life care: Status: Acute DS: Summary Hospital Course Hospital Course: Farhana Neal is a 86 year old female with multiple medical comorbidities who presented to the ER for weakness.? Two of her daughters are in the room during H&P, and assist in providing history.? Patient lives independently and has had increasing weakness over the past 2 weeks; during this time, her daughters have been staying with her to assist with ADLs. Over the past few weeks, she has had pain in her left shoulder, received steroid injection (9mg Betamethason) 2 days ago.? She was also started on tizanidine on 09/25 for pain. In the past 2 days, her weakness has significantly worsened and she was unable to complete her dialysis run this morning secondary to weakness. She denies chest pain, dyspnea, abdominal pain.? Last BM was this morning (x2, then she actually took an Imodium as she was worried about having a bowel movement while at dialysis). Patient's vomiting persisted, and she then complained of abdominal pain, CT abdomen pelvis obtained.? This exhibited a 9 x 11 cm mass in the liver concerning for biliary obstruction. Reviewed the case with Dr. Lamar of hepatobiliary surgery at the [facility].? He recommended an NG tube if patient persistently vomits, and notes that his team would consider further assessment/intervention when she is able to transfer to [facility].? Of note, patient's bilirubin is normal. Patient remained comfortable, NG tube never placed. In a relatively short period of time the patient and family held discussions and made the decision to alter the paradigm of her care to comfort measures only, with DNR DNI resuscitation status. They declined to pursue any additional disease directed diagnostic or interventional efforts. They requested assistance in sorting hospice options. We were able to keep patient comfortable during the course of hospital stay. Eventually were able to find placement for her for terminal comfort care measures only per her request and family support. Status at Discharge Functional status at discharge: bed bound Overall status at discharge: patient is not back to baseline Time Spent with Patient Time attestation: Total time spent providing and/or coordinating discharge services: Time spent: Less than 30 minutes Exam Narrative: Exam Narrative: 86-year-old woman with end-stage renal disease who ordinarily receives hemodialysis 3 days per week has opted to change the paradigm of her care to terminal comfort measures only.? She presented to the hospital for evaluation of nausea and vomiting with decreased oral intake.? In the course of working her up it was determined that she has a large cystic mass in her liver.? Etiology of this is not yet determined.? Arrangements were being made to transfer patient to another facility for tertiary services that we are unable to provide here.? Patient subsequently indicated her desire to change the paradigm of care to comfort measures only.? Patient now receiving end of life cares.? She indicates she is not having nausea or vomiting but has no interest in eating.? She indicates she is comfortable at this time and that she slept well.? Denies dyspnea at rest.? Denies chest heaviness, pressure, tightness, or pain.? Denies syncope or near-syncope.? Tolerated bed bath with assist from her nurse and indicated that she felt better afterward. Family and nursing staff note patient is more sleepy.? Having intermittent episodes of confusion and visual hallucinations. Exam Narrative:?? Exam Narrative: Ap pears comfortable and in no acute di stress.? Articulat e and cooperative. ? Expresses gratit ude. Alert and torri ented to self and place not so much to time.? Reiterat es desire to be ke pt comfortable and does not want to escalate care at a ll. Lungs are ewelina r but with decreas ed chest wall excu rsion.? No obvious wheezing, rhonchi , or rales.? Heart tones with regula r rhythm, normal S 1-S2.? Abdomen steve ign. Const: Documenting provider has reviewed patient's vital signs: yes DS: Data Imaging CT scan - abdomen: Attestation: I have reviewed the pertinent imaging results. Radiologist's impression: [place] [address] Diagnostic Imaging Report Patient: Farhana Neal MR#: [id number] : 1935 Acct:[id number] Loc: [id number] Service Date: 10/06/[address]: Cecelia Gaming M.D. Ordering Physician: Cecelia Gaming M.D. Date of Service: 10/06/22 Procedure(s): CT abdomen pelvis wo con Accession Number(s): [id number] cc: Jack Velazquez JR, D.O.; Cecelia Gaming M.D.~ For Patients:? As a result of the Century Cures Act, medical imaging exams and procedure reports are released immediately into your electronic medical record.? You may view this report before your referring provider.? If you have questions, please contact your health care provider. INDICATION: Abdominal pain, vomiting TECHNIQUE: CT Abdomen and pelvis without i.v. contrast. Coronal and sagittal reformats were obtained. COMPARISON: 10/17/2020 FINDINGS: Lower chest: Bilateral pleural effusions, septal thickening and ground-glass opacities are present in the lung bases likely due to pulmonary edema. Liver: There is a large cystic lesion in the right upper quadrant measuring 11 x 9 cm and significantly increased in size from prior exam. It causes severe intrahepatic biliary ductal dilatation. Spleen: Unremarkable. Pancreas: Unremarkable. Gallbladder: Unremarkable. Kidney: Moderate cortical atrophy is present within the kidneys bilaterally. Adrenal: Unremarkable. Bowel: Severe sigmoid diverticulosis is seen. The appendix is normal in appearance and size. Vascular: Moderate diffuse atherosclerotic calcifications of the abdominal aorta and its tributaries are present. Lymph: Unremarkable. Peritoneum: Unremarkable. No pneumoperitoneum is seen. No significant ascites is noted. Pelvis: Unremarkable. Soft tissue: Eventration of the midline abdominal wall is present with diastases of the rectus abdominus muscles. Mild subcutaneous edema is present. Bone: Unremarkable for age. IMPRESSION: 1. There is a large cystic lesion in the right upper quadrant measuring 11 x 9 cm and significantly increased in size from prior exam. It causes severe intrahepatic biliary ductal dilatation. Discharge Plan Discharge Disposition: [facility] Discharge Location: [facility] Date of Admission: 10/05/22 20:34 Attending Provider on Discharge: Terry Tierney Primary Care Provider: Jack Velazquez JR Condition: Stable Anticipated Discharge Date/Time: 10/10/22 09:30 Discharge Medications: New acetaminophen 325 mg Tablet 650 mg PO QID PRNQty: 30 0RF hyoscyamine sulfate 0.125 mg Tablet, Sublingual 0.125 - 0.25 mg sublingual Q4H PRN (Reason: To decrease secretions) Qty: 10 0RF fentanyl 12 mcg/hr Patch 72 Hour 1 patch transdermal Q72H Qty: 5 0RF lorazepam 0.5 mg Tablet 0.5 mg PO Q4H PRNQty: 20 0RF morphine concentrate 10 mg/0.5 mL Syringe 5 mg PO Q1H PRNQty: 10 0RF ondansetron 4 mg tablet,disintegrating 4 mg PO Q6H Qty: 20 0RF Continued pantoprazole 40 mg tablet,delayed release (DR/EC) 40 mg PO DAILY Label Comments: TAKE ONE TABLET BY MOUTH ONE TIME DAILY IN THE MORNING BEFORE BREAKFAST brimonidine 0.2 % drops 1 drp OPHTHALMIC (EYE) TID Label Comments: INSTILL ONE DROP INTO LEFT EYE THREE TIMES A DAY carbidopa-levodopa 25-100 mg tablet 2 tab PO TID Label Comments: Take 2 tablets by mouth in the morning then take 1 tablet in afternoon and then 2-3 tablets at bedtime latanoprost 0.005 % drops 1 drp OPHTHALMIC (EYE) HS Label Comments: INSTILL ONE DROP INTO LEFT EYE AT BEDTIME nitroglycerin 0.4 mg tablet, sublingual 0.4 mg sublingual Q5M PRN Label Comments: PLACE 1 TABLET UNDER THE TONGUE EVERY 5 MINUTES NEEDED FOR CHEST PAIN UP TO 3 DOSES. CALL 911 IF PAIN PERSISTS. dorzolamide-timolol 22.3-6.8 mg/mL drops 1 drp OPHTHALMIC (EYE) BID Label Comments: INSTILL ONE DROP INTO LEFT EYE TWICE DAILY Discontinued atorvastatin 40 mg tablet 40 mg PO HS Label Comments: TAKE ONE TABLET BY MOUTH ONE TIME DAILY AT BEDTIME carvedilol 12.5 mg tablet 12.5 mg PO BID Label Comments: TAKE ONE TABLET BY MOUTH TWICE DAILY clopidogrel 75 mg tablet 75 mg PO DAILY Label Comments: TAKE ONE TABLET BY MOUTH ONE TIME DAILY insulin glargine [Lantus Solostar U-100 Insulin] 100 unit/mL (3 mL) insulin pen 16 unit SUBCUT BID irbesartan 300 mg tablet 300 mg PO HS Label Comments: take 0.5 tablets by mouth once daily at bedtime. isosorbide mononitrate 30 mg tablet extended release 24 hr 30 mg PO DAILY Triphrocaps 1 mg capsule 1 cap PO DAILY Label Comments: TAKE ONE CAPSULE BY MOUTH ONE TIME DAILY Discharge Orders: Discharge Order (Routine); Ordered 10/10/22 Ordered By: Terry Tierney Additional Instructions: 1. Patient and family desire terminal comfort measures only. They are considering hospice consultation. 2. Patient and family decline any additional disease directed diagnostic or interventional efforts, including no further hemodialysis. Activity Level: Activity as Tolerated Activity Detail: Skin cares. Pressure ulcer prevention precautions. Incontinence associated dermatitis prevention precautions. Discharge Diet: Regular Follow Up Appointments: [facility] [Outside] Jack Velazquez JR, [Primary Care Provider] - (No follow-up needed) Admit to: SNF Discharge Potential: Poor Length of Stay: <30 days Can use facility standing orders?: Yes Code Status: DNR/DNI TEDs: N/A Rehab Potential: Poor Oxygen: Yes Oxygen Delivery Method: Nasal Cannula Oxygen Flow Rate: 0-2 LPM for SaO2 greater than 88% Hospice Evaluate and Admit: Patient and family still considering this possibility Orders are good >30 days: Yes Signature: Terry Tierney
== END 2022-10-10 09:51 ==
LOC: ED 16:10 → MEDSURG 20:34
PROVIDERS: Family Medicine; Admitting Provider Family Medicine; Emergency Provider Emergency Medicine Emergency Medical Services; PCP Internal Medicine Nephrology; Visit Provider Family Medicine
DX: K76.89 Other specified diseases of liver (principal); N18.6 End stage renal disease; Z99.2 Dependence on renal dialysis; Z51.5 Encounter for palliative care; R11.14 Bilious vomiting; I25.10 Atherosclerotic heart disease of native coronary artery without angina pectoris; E11.22 Type 2 diabetes mellitus with diabetic chronic kidney disease; I12.0 Hypertensive chronic kidney disease with stage 5 chronic kidney disease or end stage renal disease; N17.9 Acute kidney failure, unspecified; R11.0 Nausea; R09.02 Hypoxemia; R53.1 Weakness; D69.6 Thrombocytopenia, unspecified; Z79.4 Long term (current) use of insulin; M54.50 Low back pain, unspecified; E78.5 Hyperlipidemia, unspecified; G20 Parkinson's disease; R79.89 Other specified abnormal findings of blood chemistry; R77.8 Other specified abnormalities of plasma proteins; K86.2 Cyst of pancreas; R10.9 Unspecified abdominal pain; Z66 Do not resuscitate; R11.10 Vomiting, unspecified; Z98.890 Other specified postprocedural states; Z95.5 Presence of coronary angioplasty implant and graft; I05.0 Rheumatic mitral stenosis; Z86.73 Personal history of transient ischemic attack (TIA), and cerebral infarction without residual deficits
CPT/HCPCS: 36415; 70450; 71046; 74018; 74176; 80048; 80053; 80076; 81001; 82962; 83605; 83690; 84484; 85025; 85651; 86140; 87040; 87086; 87631; 93005; 94761; 96365; 96366; 96372; 96375; 96376; 99284; 99285; G0378; A9270; C9113; G0379; J0360; J0696; J1170; J1940; J2270; J2405; J3370; J7050

== ENCOUNTER 2022-10-10 09:35 | Outpatient (CLI) | payer MEDICARE, SELFPAY | END 2022-10-10 09:36 | disposition home or self-care (01) | LOC: AMB 10-19 11:16 | PROVIDERS: PCP Internal Medicine Nephrology; Visit Provider Family Medicine | DX: Z74.01 Bed confinement status (principal) | CPT/HCPCS: A0425; A0428 ==